=== PATIENT | female | born 1950 | race Caucasian/White ===

== ENCOUNTER → 2017-04-21 08:31 | Outpatient (CLI) | payer BC, SELFPAY ==
--- NOTE | 2017-04-21 08:37 | MM_ITS ---
MM Dig screening mamm BI w/CAD CAD Screening COMPARISON: None, this is baseline INDICATION: There is a history of breast cancer in patient's maternal grandmother diagnosed in her 50s TECHNIQUE: Standard CC and MLO images were obtained. R2 CAD reviewed. FINDINGS: The breasts are composed primarily of fat with minimal scattered fibroglandular densities throughout each breast. There are 2 oval calcifications right breast just deep to the nipple typical of oil cysts. There are couple benign-appearing calcifications left breast. There is no suspicious lesion and there are no suspicious microcalcifications. IMPRESSION: Fibrofatty parenchyma no suspicious lesion seen BI-RADS Category: 2 Benign Finding(s) RECOMMENDED FOLLOW-UP: 1YR - 1 YEAR FOLLOW-UP (A letter has been sent to the patient regarding results of the study.)
== END ==
PROVIDERS: Family Provider Family Medicine; PCP Family Medicine; Visit Provider Family Medicine
DX: Z12.31 Encounter for screening mammogram for malignant neoplasm of breast (principal)
CPT/HCPCS: 77067

== ENCOUNTER 2020-10-13 08:30 | Emergency (ER) | payer BC, SELFPAY ==
[2020-10-13 08:33] VITALS: BP 168/76; PULSE 68; RESP 16; TEMP 36.7; O2SAT 98; BMI 33.2
--- NOTE | 2020-10-13 08:46 | XR_ITS ---
PROCEDURE: XR FOOT LT MIN 3V CLINICAL INDICATION: trauma Posttraumatic pain COMPARISON: No exams were available for comparison FINDINGS: No fracture or dislocation. No lytic or blastic change. There is normal mineralization. Osteoarthritic changes are present at the 1st MTP joint. Calcaneal spur and Achilles enthesophyte noted. Calcification along the plantar surface of the mid aspect of the calcaneus also present. Other findings:None. IMPRESSION: No acute findings. Dictated by: Carlos Martin MD 10/13/2020 09:32 Carlos Martin MD in [place] 10/13/2020 09:32
--- NOTE | 2020-10-13 09:26 | HMH.EDGENADL ---
ED Disposition Clinical Impression: Avulsed toenail Qualifiers: Encounter type: initial encounter Qualified Code(s): S91.209A - Unspecified open wound of unspecified toe(s) with damage to nail, initial encounter Disposition: Home, Self-Care Condition on Discharge: Good Instructions: DI for Laceration Repair -- Simple Referrals: Moe Evangelista MD [Primary Care Provider] - - Critical Care Critical Care Time: No Attestation: On 10/13/20, the high probability of a clinically significant, sudden or life threatening deterioration of the following system(s) required my full and direct attention, intervention and personal management. The time I documented below is in addition to time spent performing reported procedures but includes the following listed in this critical care notation. Medical Decision Making - Medical Records Medical records reviewed: Yes: I reviewed the patient's medical records. - Case Inquiry Pt receiving controlled substance: No Vital Signs: 10/13/20 08:33 Temperature 98.1 F Temperature Source Oral Pulse Rate [Radial] 68 Respiratory Rate 16 Blood Pressure [Right Arm] 168/76 H Blood Pressure Mean [Right Arm] 106 Blood Pressure Position [Right Arm] Sitting 02 Sat by Pulse Oximetry 98 Oxygen Delivery Method Room Air Orders (Tests/Meds): ED MEDICATIONS Discontinued Medications Generic Name Dose Route Start Last Admin Trade Name Freq PRN Reason Stop Dose Admin Ibuprofen 800 mg 10/13/20 08:45 10/13/20 08:51 Ibuprofen 400 Mg Tablet PO 10/13/20 08:46 Not Given ONCE ONE - Radiology Data #1 Image(s): Foot/Toes Image Reviewed: Yes I reviewed the patient's radiology results, Yes I reviewed the patient's radiology image, Yes I have reviewed radiologist's interpretation Preliminary Findings: Normal/NAD, No Fracture Seen - Reevaluation(s) Time: 10:07 Reevaluation #1: On reevaluation, the patient tolerated procedure well. Given that half of the nailbed was still intact, we did attempt to reposition the lateral aspect of the nail and placed [address] sterile dressing. Patient will follow up with PCP in 48 hours. Given strict return precautions. Verbalized understanding. Medical Decision Narrative: 62-year-old female presenting with some pain in the left great toe. Concern for fracture. Patient does have removed nailbed on the medial aspect. Work-up initiated. General Adult HPI - General Chief complaint: PAIN Stated complaint: ao [id number]@injury to left foot, horse stepped on it Time Seen by Provider: 10/13/20 08:40 Mode of Arrival: Ambulatory Limitations: No Limitations Description of Symptoms (Recalled from ER Triage Doc. by RN): TO ED PER PVT CAR WITH C/O LT FOOT INJURY STATES HORSE STEPPED ON FOOT TUESDAY. - History of Present Illness HPI narrative: 70-year-old female presented to the emergency department with an injury to her left great toe. Patient states that a horse stepped on her foot. Complaining of some mild pain in the distal aspect of the left great toe. She had some bleeding at the time it occurred. Her nail has been removed slightly from the medial aspect. She did not sustain any other injuries. Tetanus is up-to-date. Denies any chest pain or shortness of breath. No abdominal pain or vomiting. No headache or change in vision. - Related Data Allergies Allergy/AdvReac Type Severity Reaction Status Date / Time BEE VENOM Allergy Unknown SWELLING Uncoded 02/15/17 15:38 PENICILLIN Allergy Unknown I-HIVES Uncoded 02/15/17 15:38 [facility] History - Hepatitis A Screen Drug use history?: No High risk sexual behaviors?: No History of sexually transmitted infection?: No Currently employed?: No Childcare worker?: No Do you have indoor plumbing?: Yes Do you have electricity?: Yes Attestation statement:: This patient has been screened for Hepatitis A risk factors. I have reviewed the patient's past medical history: Yes
--- NOTE | 2020-10-13 10:20 | PC.NURSE ---
DSD APPLIED TO LT GREAT TOE
[2020-10-13 10:21] VITALS: BP 115/74; PULSE 65; RESP 16; TEMP 36.6; O2SAT 98
== END 2020-10-13 10:23 | disposition home or self-care (01) ==
PROVIDERS: Emergency Provider Emergency Medicine; PCP Family Medicine
DX: S91.212A Laceration without foreign body of left great toe with damage to nail, initial encounter (principal); W55.19XA Other contact with horse, initial encounter; Y92.79 Other farm location as the place of occurrence of the external cause; Z88.0 Allergy status to penicillin
CPT/HCPCS: 12001; 73630; 99282

== ENCOUNTER → 2021-02-10 11:16 | Outpatient (CLI) | payer BC, SELFPAY ==
[2021-02-11 08:16] LABS: Homocyst(e)ine 18.8 umol/L (0.0-17.2)
[2021-02-11 10:44] LABS: Rapid Plasma Reagin Ab Titer Non Reactive (NonRea<1:1)
[2021-02-13 17:09] LABS: Vitamin B1 104.2 nmol/L (66.5-200.0)
[2021-02-14 21:08] LABS: Methylmalonic Acid 256 nmol/L (0-378)
[2021-04-17 10:11] LABS: Antinuclear Antibodies (ANA) NEGATIVE
== END ==
LOC: LAB 03-14 02:02
PROVIDERS: Visit Provider Nurse Practitioner Family
DX: R41.3 Other amnesia (principal)
CPT/HCPCS: 36415; 82131; 83090; 84425; 86038; 86225; 86235; 86592

== ENCOUNTER → 2021-02-13 16:20 | Outpatient (CLI) | payer BC, MEDICARE, SELFPAY ==
--- NOTE | 2021-02-13 16:20 | MR_ITS ---
PROCEDURE INFORMATION: Exam: MR Head Without Contrast Exam date and time: 02/13/2021 4:20 PM Age: 70 years old Clinical indication: Pain; Headache; Additional info: Eval for [employer] abnormalaties, lesion, mass, etc TECHNIQUE: Imaging protocol: MR of the head without contrast. COMPARISON: No relevant prior studies available. FINDINGS: Brain: Moderate central and peripheral cerebral atrophy identified. No evidence of intracranial mass. There is no evidence of focal cerebral edema. Punctate and globular areas of increased T2 signal are identified within lateral periventricular white matter, compatible with chronic deep white matter ischemic changes. No evidence of proton diffusion restriction within the brain on the diffusion-weighted images. No evidence of cerebellar tonsillar ptosis. Cerebral ventricles: Mild global ventriculomegaly. No evidence of midline shift. Bones/joints: Unremarkable. Paranasal sinuses: Normal as visualized. No acute sinusitis. Mastoid air cells: Normal as visualized. No mastoid effusion. Orbital cavity: Unremarkable. Soft tissues: The pituitary gland is normal size and position. IMPRESSION: 1. Moderate central and peripheral cerebral atrophy with mild global ventriculomegaly and chronic deep white matter ischemic changes. 2. No evidence of acute edema. There is no evidence of intracranial mass.
== END ==
PROVIDERS: PCP Family Medicine; Visit Provider Nurse Practitioner Family
DX: R41.3 Other amnesia (principal)
CPT/HCPCS: 70551

== ENCOUNTER → 2021-02-17 09:28 | Outpatient (CLI) | payer BC, MEDICARE, SELFPAY | PROVIDERS: PCP Family Medicine; Visit Provider Nurse Practitioner Family | DX: R41.3 Other amnesia (principal) | CPT/HCPCS: 95816 ==

== ENCOUNTER 2021-03-06 09:00 | Outpatient (RCR) | payer BC, MEDICARE, SELFPAY ==
--- NOTE | 2021-01-28 09:30 | HMH.PTOPEV ---
PT Outpatient Evaluation Rehab PT Outpatient Evaluation Start: 01/28/21 09:16 Freq: Status: Active Protocol: Document 01/28/21 09:16 TRAVIS (Rec: 01/28/21 09:28 TRAVIS [id number]) Electronically Signed By Pavan Andino, PT 01/28/21 09:16 Outpatient Therapy Subjective History Subjective History Patient is a 70 year old female presenting to outpatient PT with reports of R knee pain/stiffness S/P R TKA performed 12/22/20 (5w 2d) . Patient reports R knee symptoms of insidious onset starting approximately 2 years ago that has progressively gotten worse. Patient received home health PT for 4 visits after surgery. Main complaint at this time is lack of R knee flexion. Comorbidities include hx of B LANNY and DJD. Chief Complaint Pain,Stiff,Swelling,Weakness Symptom Type Throb,Dull Symptoms Relieved By Rest/Positioning,Ice,OTC Meds Symptoms Aggravated By Standing,Physical Activity, Walking Prior Functional Limitations None Current Functional Limitations Housework,Driving,Standing, Recreation Activity,Walking, Stairs,Balance Symptom Description Constant but Variable Level of pain today (0-10) 2 Pain scale - at its best (0-10) 2 Pain scale - at its worst (0-10) 7 Hip/Knee Eval Gait Observation General Gait Pattern Observation Antalgic Gait,Decrease Weight Bear (R) Assistive Device Assistive Devices None / NA Palpation Tenderness right Knee Palpation Finding Tenderness Knee Palpation Overall Comment Surgical incision, M/L joint line 2/4 MMT Hip Flexion Strength Grade 3+ Fair+ Hip Abduction Strength Grade 3+ Fair+ Hip Adduction Strength Grade 4- Good- Hip Extension Strength Grade 4- Good- Hip External Rotation Strength Grade 4 Good Hip Internal Rotation Strength Grade 4 Good Knee Extension Strength Grade 4 Good Knee Flexion Strength Grade 4 Good ROM Hip ROM Reason Not Measured Within Functional Limits Knee Extension Active Range of Motion ( -8 degrees) Knee Extension Passive Range of Motion ( -4 degrees) Knee Flexion Active Range of Motion ( 79 degrees) Knee Flexion Passive Range of Motion (
--- NOTE | 2021-02-25 10:48 | HMH.RHREAS ---
Rehab Reassessment Rehab OP Re-assessment Start: 02/25/21 10:39 Freq: Status: Active Protocol: Document 02/25/21 10:39 TRAVIS (Rec: 02/25/21 10:48 TRAVIS [id number]) Electronically Signed By Pavan Andino, PT 02/25/21 10:39 Rehab Re-assessment Subjective Subjective Patient reports 85% improvment since start of care. Objective Objective Notes AROM: flx 86; ext -9 PROM: flx 100; ext -2 MMT: hip flx 4-/5; hip abd 4-/ 5; add 4/5; ext 4-/5; ER/IR 4/ 5; knee ext 5-/5; knee flx 5/5 Pain: currently 0/10; 5/10 at worst over past week TTP: none Special tests: - Assessment Progress Assessment Progressing as Expected Assessment Notes Patient is tolerating progression of Rx well. Objective improvements as noted above. Main concern at this point is lack of improvement in mobility and hip strength. Hip strengthening hindered by previous LANNY bilaterally. Patient has not returned to full duty with work related activiities secondary to safety and fear avoidance. Patient would benefit from continuing skilled PT services in order to address her mobility issues, as well as functional limitations with all standing/ambulatory activities. Patient goals met STG's, LTG 1,4,5 Goals Not Met LTG 2,3,6,7 Revised Goals NA Plan Plan Continue with current POC. Frequency of Therapy 2x/week Duration of therapy 4 weeks Time and Billing Re-Eval Time 15 Re-Eval Billing Units 1 PHYSICIAN CERTIFICATION: I certify the specified therapy services for Xiao Hu are required, authorized, and reviewed every 30 days.
== END 2021-03-06 09:05 | disposition home or self-care (01) ==
LOC: PT 09:00
PROVIDERS: PCP Family Medicine; Visit Provider Family Medicine
DX: M25.561 Pain in right knee (principal); Z96.651 Presence of right artificial knee joint
CPT/HCPCS: 97110; 97140; 97163; 97164

== ENCOUNTER → 2021-05-20 12:21 | Outpatient (CLI) | payer BC, MEDICARE, SELFPAY | PROVIDERS: PCP Family Medicine; Visit Provider Nurse Practitioner Family | DX: G47.33 Obstructive sleep apnea (adult) (pediatric) (principal); G47.8 Other sleep disorders; I10 Essential (primary) hypertension; R41.3 Other amnesia; E66.9 Obesity, unspecified; Z68.36 Body mass index [BMI] 36.0-36.9, adult | CPT/HCPCS: G0399 ==

== ENCOUNTER → 2021-09-10 09:08 | Outpatient (CLI) | payer BC, SELFPAY ==
--- NOTE | 2021-09-10 09:12 | XR_ITS ---
FINAL REPORT TECHNIQUE: Bone densitometry calculations of the lumbar spine and left forearm were obtained. CLINICAL HISTORY: . post menopausal screening, patient has had bilateral hip replacements FINDINGS: DEXA BONE DENSITY AXIAL SKELETON Using L1-4, the bone mineral density of the spine is 1.259 g/cm2, corresponding to T-score of 1.9. Using the left forearm, the bone mineral density of the distal 1/3 is 0.670 g/cm2, corresponding to a T-score of -0.4. NOTE: T-score: Standard deviation compared with peak bone mass of young adult mean. IMPRESSION: Normal bone mineral density of the lumbar spine and left forearm. Reviewed, Interpreted and Dictated by Chuy Bui MD Transcribed by Rosy Boyce Authenticated and . [facility]
--- NOTE | 2021-09-10 09:12 | MM_ITS ---
PROCEDURE INFORMATION: Exam: MG Bilateral Screening 3D Mammography Exam date and time: 09/10/2021 9:25 AM Age: 71 years old Clinical indication: Screening examination TECHNIQUE: Imaging protocol: Bilateral Screening tomosynthesis and 2D mammography including computer-aided detection (CAD) when performed. COMPARISON: MG SCBI MM Dig screening mamm BI w/CAD 04/21/2017 8:59 AM FINDINGS: MAMMOGRAPHY: Breast composition: The breasts are almost entirely fatty. Mass: None. Architectural distortion: None. Calcifications: No suspicious calcifications. Asymmetric density: None. Skin thickening: None. Axillary adenopathy: None. IMPRESSION: No mammographic evidence of malignancy. Annual screening is recommended unless otherwise clinically indicated. ASSESSMENT: BI-RADS Category 1: Negative
== END ==
PROVIDERS: PCP Family Medicine; Visit Provider Family Medicine
DX: Z12.31 Encounter for screening mammogram for malignant neoplasm of breast (principal); Z13.820 Encounter for screening for osteoporosis; Z78.0 Asymptomatic menopausal state
CPT/HCPCS: 77063; 77067; 77080

== ENCOUNTER → 2022-04-27 11:22 | Outpatient (CLI) | payer BC, MEDICARE, SELFPAY ==
--- NOTE | 2022-04-27 11:33 | XR_ITS ---
FINAL REPORT CLINICAL HISTORY: KNEE PAIN LEFT, fell 3 weeks ago , pain, swelling FINDINGS: AP, lateral and oblique views of the left knee were obtained. There is no prior exam for comparison. There is no acute osseous abnormality of the knee. There is degenerative disease which is most pronounced at the patellofemoral compartment. There is a small joint effusion. Otherwise, the soft tissues are within normal limits. IMPRESSION: Joint effusion without acute osseous abnormality. Consider MR for further evaluation if pain persists. Reviewed, Interpreted and Dictated by Janett Gaffney MD Transcribed by Rosy Boyce Authenticated and [facility]
== END ==
PROVIDERS: PCP Family Medicine; Visit Provider Family Medicine
DX: M25.562 Pain in left knee (principal)
CPT/HCPCS: 73562

== ENCOUNTER → 2022-05-13 19:56 | Outpatient (CLI) | payer BC, MEDICARE, SELFPAY | PROVIDERS: PCP Family Medicine; Visit Provider Nurse Practitioner Family | DX: G47.33 Obstructive sleep apnea (adult) (pediatric) (principal); G47.36 Sleep related hypoventilation in conditions classified elsewhere | CPT/HCPCS: 95811 ==

== ENCOUNTER → 2022-06-15 10:30 | Outpatient (CLI) | payer BC, MEDICARE, SELFPAY ==
--- NOTE | 2022-06-15 10:36 | XR_ITS ---
FINAL REPORT CLINICAL HISTORY: hypoxemia FINDINGS: Two views of the chest were obtained. The heart size and pulmonary vascularity are within normal limits. The mediastinum is normal. There is eventration of the right hemidiaphragm. There is no pneumothorax. The bony thorax is intact. IMPRESSION: Eventration of the right hemidiaphragm. Reviewed, Interpreted and Dictated by Bassam Parekh III, MD Transcribed by Rosy Boyce Authenticated and [facility]
== END ==
PROVIDERS: PCP Family Medicine; Visit Provider Nurse Practitioner Family
DX: G47.34 Idiopathic sleep related nonobstructive alveolar hypoventilation (principal)
CPT/HCPCS: 71046

== ENCOUNTER → 2022-06-22 09:53 | Outpatient (CLI) | payer BC, SELFPAY ==
[2022-06-22 11:00] VITALS: PULSE 78; PULSE 81
== END ==
PROVIDERS: PCP Family Medicine; Visit Provider Nurse Practitioner Family
DX: G47.34 Idiopathic sleep related nonobstructive alveolar hypoventilation (principal)
CPT/HCPCS: 94060; 94618; 94640; 94727; 94729

== ENCOUNTER → 2022-09-13 12:44 | Outpatient (CLI) | payer BC, SELFPAY ==
--- NOTE | 2022-09-13 13:32 | CT_ITS ---
FINAL REPORT TECHNIQUE: Thin section axial images were obtained from the lung apices through the upper abdomen without contrast. This study was performed with techniques to keep radiation doses as low as reasonably achievable (ALARA). Individualized dose reduction techniques using automated exposure control or adjustment of mA and/or kV according to the patient's size were employed. CLINICAL HISTORY: abnormal CXR COMPARISON: None FINDINGS: There is no mediastinal, hilar, or axillary lymphadenopathy. No pleural or pericardial effusion. There is a 6 mm left lower lobe nodule seen best in axial image #64. No other pulmonary masses or nodules are visualized. There is elevation of the right hemidiaphragm. Gallstones are present in the gallbladder. No other abnormality identified in the noncontrast upper abdomen limited exam. There is no acute osseous abnormality. IMPRESSION: 6 mm left lower lobe nodule seen best on axial image #64. Would recommend follow-up exam after risk stratification per Fleischner criteria. Gallstones are present in the gallbladder. Elevation of the right hemidiaphragm. Reviewed, Interpreted and Dictated by Janett Gaffney MD Transcribed by Rosa Proctor Authenticated and [facility]
== END ==
PROVIDERS: PCP Family Medicine; Visit Provider Internal Medicine Pulmonary Disease
DX: R06.02 Shortness of breath (principal); Q79.1 Other congenital malformations of diaphragm
CPT/HCPCS: 71250; 94060; 94726; 94729

== ENCOUNTER → 2022-10-18 08:23 | Outpatient (CLI) | payer BC, SELFPAY ==
--- NOTE | 2022-10-18 08:23 | FL_ITS ---
FINAL REPORT CLINICAL HISTORY: hypoventilation fluoro time.35 FINDINGS: SNIFF TEST HISTORY: Shortness of breath. FINDINGS: A sniff test was performed under fluoroscopy. There was paradoxical movement of the right hemidiaphragm on both breathing and sniff maneuvers. FLUOROSCOPY TIME: 32 seconds. 5 cine runs were obtained. IMPRESSION: Paradoxical movement of the right hemidiaphragm. Films reviewed , interpreted and dictated by Dr. Bui. Transcribed by Carter Norton PA-C. Reviewed, Interpreted and Dictated by Chuy Bui MD Transcribed by DYLON Obrien Authenticated and . [facility]
== END ==
PROVIDERS: PCP Family Medicine; Visit Provider Internal Medicine Pulmonary Disease
DX: J98.6 Disorders of diaphragm (principal)
CPT/HCPCS: 76000; 94762

== ENCOUNTER → 2023-01-25 08:07 | Outpatient (CLI) | payer BC, SELFPAY ==
--- NOTE | 2023-01-25 08:10 | MM_ITS ---
PROCEDURE INFORMATION: Exam: MG Bilateral Screening 3D Mammography Exam date and time: 01/25/2023 8:03 AM Age: 72 years old Clinical indication: Screening mammogram TECHNIQUE: Imaging protocol: Bilateral Screening tomosynthesis and 2D mammography including computer-aided detection (CAD) when performed. COMPARISON: 1. MG MM DIG SCREENING MAMM BI W/CAD 09/10/2021 9:25 AM 2. MG SCBI MM Dig screening mamm BI w/CAD 04/21/2017 8:59 AM FINDINGS: MAMMOGRAPHY: Breast composition: There are scattered areas of fibroglandular density. Mass: None. Architectural distortion: No new or suspicious architectural distortion. Calcifications: No new or suspicious calcifications are present Asymmetric density: No new or suspicious asymmetric density is present Skin thickening: None. Axillary adenopathy: None. IMPRESSION: No mammographic evidence of malignancy. Recommend annual screening mammography unless otherwise clinically indicated. ASSESSMENT: BI-RADS category 1: Negative
== END ==
PROVIDERS: PCP Family Medicine; Visit Provider Family Medicine
DX: Z12.31 Encounter for screening mammogram for malignant neoplasm of breast (principal)
CPT/HCPCS: 77063; 77067

== ENCOUNTER 2023-08-03 11:14 | Outpatient (CLI) | payer BC, SELFPAY ==
--- NOTE | 2023-08-03 | XR_ITS ---
FINAL REPORT CLINICAL HISTORY: LBP COMPARISON: None FINDINGS: LUMBOSACRAL SPINE SERIES Five views of the lumbosacral spine were obtained. There is no fracture present. There are moderate and severe degenerative changes. Vacuum phenomenon is noted at L2-3 and L3-4. There is mild anterolisthesis of L4 on L5. Mild rightward curvature of the lumbosacral spine is noted. There are postoperative changes in the bilateral hips. IMPRESSION: Moderate and severe degenerative changes. Reviewed, Interpreted and Dictated by Bassam Parekh III, MD Transcribed by Nisha Little Authenticated and [facility]
== END 2023-08-03 23:59 | disposition home or self-care (01) ==
LOC: RAD 11:15
PROVIDERS: PCP Family Medicine; Visit Provider Family Medicine
DX: M54.50 Low back pain, unspecified (principal); M51.36 Other intervertebral disc degeneration, lumbar region
CPT/HCPCS: 72110

== ENCOUNTER 2023-08-14 19:33 | Emergency (ER) | payer BC, MEDICARE, SELFPAY ==
[2023-08-14] VITALS (7 sets, daily range): BP systolic 104–128; BP diastolic 46–69; PULSE 69–77; RESP 12–17; TEMP 36.5–36.7; O2SAT 91–97; BMI 41.5
--- NOTE | 2023-08-14 19:38 | CT_ITS ---
PROCEDURE INFORMATION: Exam: CT Cervical Spine Without Contrast Exam date and time: 08/14/2023 7:43 PM Age: 73 years old Clinical indication: Injury or trauma; Fall; Blunt trauma; Additional info: Fall, injury TECHNIQUE: Imaging protocol: Computed tomography of the cervical spine without contrast. Radiation optimization: All CT scans at this facility use at least one of these dose optimization techniques: automated exposure control; mA and/or kV adjustment per patient size (includes targeted exams where dose is matched to clinical indication); or iterative reconstruction. COMPARISON: CT HEAD/BRAIN WO CON 08/14/2023 7:43 PM FINDINGS: Bones: No evidence of acute osseous abnormality. The vertebral bodies are maintained in height and alignment. Moderate loss of intervertebral disc space with degenerative changes at C4 through C7 with uncovertebral joint and facet osteophytosis resulting in moderate bilateral neural foraminal stenosis at these levels. Dystrophic calcifications in the posterior soft tissues likely related to prior injury. Lungs: Lung apices are normal. Soft tissues: Unremarkable. IMPRESSION: 1. No evidence of acute osseous abnormality. 2. Moderate loss of intervertebral disc space with degenerative changes at C4 through C7 with uncovertebral joint and facet osteophytosis resulting in moderate bilateral neural foraminal stenosis at these levels.
--- NOTE | 2023-08-14 19:38 | CT_ITS ---
PROCEDURE INFORMATION: Exam: CT Head Without Contrast Exam date and time: 08/14/2023 7:43 PM Age: 73 years old Clinical indication: Injury or trauma; Fall; Blunt trauma (contusions or hematomas); Additional info: Fall, injury TECHNIQUE: Imaging protocol: Computed tomography of the head without contrast. Radiation optimization: All CT scans at this facility use at least one of these dose optimization techniques: automated exposure control; mA and/or kV adjustment per patient size (includes targeted exams where dose is matched to clinical indication); or iterative reconstruction. COMPARISON: MR HEAD/BRAIN WO CON 02/13/2021 5:28 PM FINDINGS: Brain: There is moderate diffuse cerebral volume loss present. Multiple subcortical and deep hypoattenuating white matter foci are present, likely related to small vessel senescent changes and can also be seen with prior infectious / inflammatory insult, or prior traumatic events. No hyperattenuating foci are identified to suggest acute intracranial hemorrhage. Cerebral ventricles: No ventriculomegaly. Paranasal sinuses: Visualized sinuses are unremarkable. No fluid levels. Mastoid air cells: Visualized mastoid air cells are well aerated. Bones: Unremarkable. No acute fracture. Soft tissues: Unremarkable. IMPRESSION: 1. Multiple subcortical and deep hypoattenuating white matter foci are present, likely related to small vessel senescent changes and can also be seen with prior infectious / inflammatory insult, or prior traumatic events. 2. No hyperattenuating foci are identified to suggest acute intracranial hemorrhage.
--- NOTE | 2023-08-14 19:39 | ECG_ITS ---
APPROVED REPORT Exam: Resting ECG HR:67 bpm ECG Measurements Heart Rate 67 AXES TX 193 P 62 QRSd 110 QRS -44 QT 449 T 64 QTc 464 Conclusion SINUS RHYTHM LEFT AXIS DEVIATION [QRS AXIS < -30] PATTERN CONSISTENT WITH PULMONARY DISEASE MODERATE VOLTAGE CRITERIA FOR LVH, CONSIDER NORMAL VARIANT [MEETS CRITERIA IN ONE OF: R(aVL), S(V1), R(V5), R(V5/V6)+S(V1)] ABNORMAL ECG UNCONFIRMED REPORT Electronically signed by : Demarcus Holder, 08/14/2023 22:57:56
--- NOTE | 2023-08-14 19:40 | ED_ITS ---
Discharge Plan Disposition Chief Complaint: Fall Prescriptions Prescriptions: No Action omega-3 fatty acids 1,000 mg capsule 1,000 mg PO DAILY thiamine HCl (vitamin B1) 100 mg tablet 100 mg PO DAILY Qty: 30 11RF losartan 50 mg tablet 100 mg PO DAILY mecobalamin (vitamin B12) 5,000 mcg tablet,disintegrating See Rx Instructions PO .COMPLEX Rx Instructions: PO daily; atorvastatin 20 mg tablet 20 mg PO DAILY Patient Comments: TAKE 1 TABLET BY MOUTH ONCE DAILY oxybutynin chloride 10 mg tablet extended release 24hr 10 mg PO DAILY Patient Comments: TAKE 1 TABLET BY MOUTH ONCE DAILY memantine 5 mg tablet 5 mg PO BID 90 Days Qty: 180 0RF duloxetine [Cymbalta] 60 mg capsule,delayed release(DR/EC) 60 mg PO DAILY diphenhydramine HCl [Allergy (diphenhydramine)] 25 mg capsule 25 mg PO HS PRN (Reason: allergies) magnesium 200 mg tablet 200 mg PO DAILY Clinical Impressions Clinical Impression: Concussion, Nausea & vomiting Discharge ED Provider: Zahra Holder General Adult HPI General Chief complaint: Fall Stated complaint: fall Time Seen by Provider: 08/14/23 19:33 History of Present Illness HPI narrative: Patient is a 73-year-old female brought in today after a fall and head injury and nausea vomiting. She is amnestic to the event does not recall what happened did have some preceding dizziness and lightheadedness the last several days according to her . She currently denies any symptoms she denies any headache any nausea or vomiting states she feels completely normal. She is not on any anticoagulants or antiplatelet agents. Related Data Home Medications Medication Instructions Recorded Confirmed omega-3 fatty acids 1,000 mg 1,000 mg PO DAILY 02/09/21 08/14/23 capsule duloxetine 60 mg capsule,delayed 60 mg PO DAILY 03/23/21 08/14/23 release (Cymbalta) mecobalamin (vitamin B12) 5,000 See Rx Instructions PO .COMPLEX 06/09/21 08/14/23 mcg disintegrating tablet atorvastatin 20 mg tablet 20 mg PO DAILY 03/11/22 08/14/23 diphenhydramine HCl 25 mg capsule 25 mg PO HS PRN allergies 07/23/22 08/14/23 (Allergy (diphenhydramine)) losartan 50 mg tablet 100 mg PO DAILY 11/09/22 08/14/23 magnesium 200 mg tablet 200 mg PO DAILY 11/09/22 08/14/23 oxybutynin chloride 10 mg 10 mg PO DAILY 05/17/23 08/14/23 tablet,extended release 24 hr Previous Rx's Medication Instructions Recorded thiamine HCl (vitamin B1) 100 mg 100 mg PO DAILY #30 tabs 02/09/21 tablet memantine 5 mg tablet 5 mg PO BID memory loss 90 days 05/17/23 #180 tabs Allergies Allergy/AdvReac Type Severity Reaction Status Date / Time bee venom Allergy Intermediate Uncoded 01/11/23 10:40 PENICILLIN Allergy Unknown I-HIVES Uncoded 01/11/23 10:40 PFSH [facility] Disclaimer: The information contained in this section may have been updated after the patient was seen, as this information can be updated by other users. Medical History Diaphragm dysfunction Elevated diaphragm Respiratory symptoms Diaphragm, eventration Essentially asymptomatic. declined volume assisted ventilation Nocturnal hypoxemia resolved with CPAP without any intolerance. MCI (mild cognitive impairment) MCI with memory loss, stable, some initial improvement with treatment of some risk factors which include but are not limited to MARYLOU, hypoxemia, B12 deficiency, depression, hypertension, daily consumption of alcohol, chronic pain. Denies any interest in considering memantine, donepezil. Memory loss MARYLOU (obstructive sleep apnea) Surgical History History of hip replacement, total History of hip replacement, total History of knee replacement procedure of right knee Family History Other Coronary artery disease Diabetes Heart attack Hypertension Social History Smoking Status: Never smoker alcohol intake: current alcohol intake frequency: 0-2 drinks per day substance use type: denies use current occupational status: employed Travel in the last 8 weeks: None household members: spouse housing: house marital status: ROS Obtained: Yes All systems reviewed & no additional complaints except as documented Physical Exam General General appearance: alert and in no apparent distress Head Head exam: atraumatic and normocephalic Neck Neck exam: Absent tenderness Respiratory Respiratory exam: Present normal lung sounds bilaterally Cardiovascular Cardiovascular exam: Present regular rate and normal rhythm Abdominal Exam Abdominal exam: Present soft; Absent distention or tenderness Neurological Exam Neurological exam: Present alert, oriented X3 and CN II-XII intact; Absent motor sensory deficit Medical Decision Making Case Inquiry Pt receiving controlled substance: No Vital Signs: 08/14/23 19:33 08/14/23 20:00 08/14/23 20:30 Temperature 97.7 F Temperature Source Oral Pulse Rate 71 70 Pulse Rate [Left Radial] 73 Respiratory Rate 15 13 14 Blood Pressure 104/56 L 128/63 Blood Pressure [Right Arm] 104/56 L Blood Pressure Mean [Right Arm] 72 Blood Pressure Source [Right Arm] Automatic Cuff Blood Pressure Position [Right Arm] Sitting 02 Sat by Pulse Oximetry 91 L 97 96 Oxygen Delivery Method Room Air Room Air Room Air 08/14/23 20:45 08/14/23 21:00 08/14/23 21:30 Temperature Temperature Source Pulse Rate 69 74 71 Pulse Rate [Left Radial] Respiratory Rate 12 17 16 Blood Pressure 121/57 L 114/69 127/66 Blood Pressure [Right Arm] Blood Pressure Mean [Right Arm] Blood Pressure Source [Right Arm] Blood Pressure Position [Right Arm] 02 Sat by Pulse Oximetry 97 93 L 96 Oxygen Delivery Method Room Air Room Air Room Air Lab Data Lab results reviewed: Yes I reviewed the patient's lab results. Lab Results 08/14/23 19:20: WBC 6.0, RBC 4.06 L, Hgb 13.2, Hct 39.8, MCV 98.0, MCH 32.5 H, MCHC 33.1, RDW 14.3, Plt Count 308, MPV 9.1, Neut % (Auto) 43.8, Lymph % (Auto) 40.0, Harney % (Auto) 7.2, Eos % (Auto) 7.9, Baso % (Auto) 1.1, Neut # (Auto) 2.6, Lymph # (Auto) 2.4, Harney # (Auto) 0.4, Eos # (Auto) 0.5 H, Baso # (Auto) 0.1, Sodium 140, Potassium 3.8, Chloride 104, Carbon Dioxide 25, Anion Gap 14.8, BUN 18 H, Creatinine 0.90, Estimated Creat Clear 39, Estimated GFR 62, Est GFR ( Amer) 75, Glucose 94, Calcium 9.3, Magnesium 2.4 H, Total Bilirubin 0.5, AST 47 H, ALT 30, Alkaline Phosphatase 61, Troponin I < 0.01, Total Protein 7.3, Albumin 4.1, Globulin 3.2, Albumin/Globulin Ratio 1.3 08/14/23 19:20 08/14/23 19:20 Orders (Tests/Meds): ED MEDICATIONS Discontinued Medications Generic Name Dose Route Start Last Admin Trade Name Benedicto PRN Reason Stop Dose Admin Ondansetron HCl 4 mg 08/14/23 19:38 08/14/23 19:45 Ondansetron 4mg/2ml Vial IV 08/14/23 19:39 4 mg ONCE ONE Administration ORDERS Category Date Time Status CT cervical spine wo con Stat Cat Scan 08/14/23 19:[address] head/brain wo con Stat Cat Scan 08/14/23 19:38 Completed CBC w/Auto Diff [Complete Blood Count Auto Diff] Stat Lab 08/14/23 19:20 Completed CMP [Comprehensive Metabolic Panel] Stat Lab 08/14/23 19:20 Completed Magnesium Stat Lab 08/14/23 19:20 Completed Trop I [Troponin I] Stat Lab 08/14/23 19:20 Completed Troponin I Q3H Lab 08/14/23 22:45 Ordered Troponin I Q3H Lab 08/15/23 01:45 Ordered Medical Decision Narrative: 73-year-old presents after a fall and a head injury according to her brought in by EMS GCS of 15 normal neurologic exam but she is amnestic to the event had some nausea vomiting likely is concussed. Will get a CT scan of her head and cervical spine to further evaluate for intracranial injury. Given the fact that she was also having some lightheadedness and dizziness will obtain basic labs and electrolytes troponin and EKG. If this workup is negative she will be cleared to go home with close reevaluation. CT scan of the head and cervical spine are personally interpreted and shows no acute traumatic abnormalities. According radiology there are multiple subcortical white matter foci which likely due to small vessel disease but could be seen from prior traumatic events no acute traumatic abnormalities. On reassessment patient is at her neurologic baseline according to her is now at the bedside. She has had some low oxygen saturations particular while sleeping but wears CPAP at home states she always has low oxygen saturations when awake and interactive with me her ox saturations been admitted to the low 90s. She has CPAP which she wears at home. They assure me this is her normal baseline. She is not symptomatic from a cardiorespiratory standpoint. EKG was performed to person interpreted which shows ventricular rate 67 sinus rhythm there is left axis deviation no acute ischemic changes noted no significant conduction abnormalities. No further indication for emergent or inpatient hospitalization. She will follow-up with primary care doctor as needed. Critical Care Critical Care Time Critical Care Time: No
[2023-08-14 19:45] LABS: Basophils # 0.1 K/mm3 (0-0.2); Basophils % 1.1 % (0.1-2.0); Eosinophils # 0.5 K/mm3 (0.0-0.4); Eosinophils % 7.9 % (0.1-12.0); Hematocrit 39.8 % (37.0-47.0); Hemoglobin 13.2 g/dL (12.2-16.2); Lymphocytes # 2.4 K/mm3 (0.7-4.5); Mean Corpuscular HGB Conc 33.1 g/dL (31.8-35.4); Mean Corpuscular Hemoglobin 32.5 pg (27.0-31.2); Mean Platelet Volume 9.1 fl (7.4-10.4); Monocytes # 0.4 K/mm3 (0.1-1.0); Monocytes % 7.2 % (1.7-9.3); Neutrophils # 2.6 K/mm3 (1.8-7.8); Neutrophils % 43.8 % (37.0-80.0); Platelet Count 308 K/mm3 (142-424); Red Blood Count 4.06 M/mm3 (4.20-5.40); Red Cell Distribution Width 14.3 % (11.5-17.5)
[2023-08-14] MEDS: ONDANSETRON 4MG/2ML VIAL 4 MG IV (19:45)
[2023-08-14 19:46] LABS: Chloride 104 mmol/L (98-107); Potassium 3.8 mmoL/L (3.5-5.1); Sodium 140 mmol/L (136-145)
[2023-08-14 19:48] LABS: Blood Urea Nitrogen 18 mg/dl (7-17); Creatinine Clearance Estimated 39 mL/min (50-200); Estimated Glomerular Filt Rate 62 ml/min (>60); GFR (African American) 75 ML/MIN (>60)
[2023-08-14 19:49] LABS: Alanine Aminotransferase 30 U/L (12-78); Albumin Level 4.1 g/dl (3.5-5.0); Albumin/Globulin Ratio 1.3 (1.1-1.8); Alkaline Phosphatase 61 U/L (38-126); Anion Gap 14.8 mEq/L (5-15); Aspartate Amino Transferase 47 U/L (14-36); Bilirubin,Total 0.5 mg/dl (0.2-1.3); Calcium 9.3 mg/dl (8.4-10.2); Carbon Dioxide 25 mmol/L (22.0-30.0); Globulin 3.2 g/dL (1.3-3.2); Glucose 94 mg/dl (74-100); Magnesium 2.4 mg/dl (1.6-2.3); Total Protein,Serum 7.3 g/dl (6.3-8.2)
[2023-08-14 20:02] LABS: Troponin I < 0.01 ng/ml (0.00-0.034)
--- NOTE | 2023-08-14 21:40 | PC.NURSE ---
Noted patient oxygen desaturating to low 80s on monitor. This RN to bedside to assess patient. Patient reports that she had just fallen asleep. Patient also reports she always wears CPAP at home to sleep. Oxygen saturation quickly returned to patient's baseline of 96% on room air.
--- NOTE | 2023-08-14 21:52 | PC.NURSE ---
patient assisted to bathroom patient now back in bed
== END 2023-08-14 22:28 | disposition home or self-care (01) ==
PROVIDERS: Emergency Provider Student in an Organized Health Care Education/Training Program; PCP Family Medicine
DX: S06.0X0A Concussion without loss of consciousness, initial encounter (principal); R11.2 Nausea with vomiting, unspecified; R42 Dizziness and giddiness; G47.33 Obstructive sleep apnea (adult) (pediatric); I10 Essential (primary) hypertension; W19.XXXA Unspecified fall, initial encounter
CPT/HCPCS: 70450; 72125; 80053; 83735; 84484; 85025; 93005; 96374; 99285; J2405

== ENCOUNTER 2023-09-06 11:10 | Outpatient (CLI) | payer BC, MEDICARE, SELFPAY | END 2023-09-06 23:59 | disposition home or self-care (01) | LOC: RT 11:11 | PROVIDERS: PCP Family Medicine; Visit Provider Internal Medicine Pulmonary Disease | DX: J98.6 Disorders of diaphragm (principal); R06.02 Shortness of breath | CPT/HCPCS: 94762 ==

== ENCOUNTER 2023-09-14 09:00 | Outpatient (RCR) | payer BC, MEDICARE, SELFPAY ==
--- NOTE | 2023-08-11 09:49 | HMH.PTOPEV ---
PT Outpatient Evaluation Rehab PT Outpatient Evaluation Start: 08/11/23 08:07 Freq: Status: Active Protocol: Document 08/11/23 08:07 ARIADNE (Rec: 08/11/23 09:01 ARIADNE [id number]) E-signed By Yudi Sosa, PT Outpatient Therapy Subjective History Subjective History This is an initial evaluation for 73 y/o female, Xiao Sanchez, who presents with c/o LBP. Pt reports these symptoms began the last 1.5 years and has progressively gotten worse. Pt reports standing and walking aggrevate her pain the most and finds relief with bending forwards. 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 Denies numbness, tingling, shooting pain, or worsening weakness. Denies prior PT for LBP. PMH: Hypertension, high cholesterol, MARYLOU PSH: B LANNY, R TKA Lumbar x-ray 08/03/23 Impression : Moderate and severe degenerative changes. New diagnosis of cancer in past 12 No months? Chief Complaint Pain Symptom Type Ache,Dull Symptoms Relieved By Rest/Positioning,OTC Meds, Prescription Meds,Activity Symptoms Aggravated By Standing,Walking Current Functional Limitations Lifting,Standing,Recreation Activity,Walking Symptom Description Constant but Variable Level of pain today (0-10) 4 Pain scale - at its best (0-10) 3 Pain scale - at its worst (0-10) 8 Lumbopelvic Eval Posture Thoracic Spine Posture Standing Position Neutral Lumbar Spine Posture Standing Position Neutral Assistive device Assistive Devices None / NA Gait Observation General Gait Pattern Observation Antalgic Gait Palapation tenderness bilateral lumbar spinal tenderness Yes: 1/4 TTP paraspinal tenderness Yes: 1/4 TTP buttock tenderness No Range of Motion Lumbar Spine Active Flexion Range of 90, painfree Motion (degrees) Lumbar Spine Active Extension Range of 15, painful Motion (degrees) Left Lumbar Spine Lateral Flexion Active 35, painful Range of Motion (degrees) Right Lumbar Spine Lateral Flexion 32, painful Active Range of Motion (degrees) Lumbar Spine ROM Limitations Pain Manual Muscle Test Bilateral Knee Extension Strength Grade 4 Good Knee Flexion Strength Grade 4 Good Hip Abduction Strength Grade 3 Fair Hip Adduction Strength Grade 4- Good- Hip Extension Strength Grade 4- Good- Special Tests Sciatic Nerve Tension Test Negative Left,Negative Right Crossed Straight Leg Raise Test Negative Left,Negative Right Sacroiliac Joint Compression Test Negative Left,Negative Right Sacroiliac Joint Distraction Test Negative Left,Negative Right Oswestry Index Section 1 Pain Intensity The pain is moderate and does not vary much Section 2 Personal Care (Washing,Dresing) my way of washing or dressing even though it causes some pain Section 3 Lifting I can lift heavy weights, but it gives me extra pain Section 4 Walking I cannot walk more than 1/2 mile without increasing pain Section 5 Sitting I can sit in my favorite chair for as long as I like Section 6 Standing I cannot stand more than 1/2 hour without increasing pain Section 7 Sleeping I get no pain in bed Section 8 Social Life My social life is normal but increases the degree of pain Section 9 Traveling I get some pain when traveling , but none of my usual forms of travel m Section 10 Changing Degreee of Pain My pain is gradually getting worse Score and Risk Level Oswestry Sc 18 Oswestry Risk Level Moderate Disability Outpatient Therapy Assessment Impairments Problems/Impairmments Palpation Tenderness,Impaired Range of Motion,Impaired Strength,Impaired Endurance, Impaired Gait Pattern,Impaired Walking,Impaired Standing, Impaired Recreational Activities,Impaired Work Activities,Subjective C/O Pain Prognosis Rehab Potential Good Clinical Impression Consistent with Diagnosis Yes Short Term Goals Number of Weeks 3 Increase Strength Yes: 4/5 hip flexion to improve daily function Improve Oswestry Score Yes: Improve by 4 points to decrease self-perceived disability Decrease Subjective C/O Pain Yes: 24 hour pain average of 5 /10 to decrease disability Patient to be Ind w/ HEP Yes Correction Goals Increase Range of Motion Yes: WNL pain free lumbar AROM all directions Increase Strength Yes: 5/5 BLE MMT to maximize functional strength Improve Oswestry Score Yes: Improve by 6 point to reflect mild disability Decrease Subjective C/O Pain Yes: 24 hour pain average of 3 /10 to decrease symptom severity to minimal Patient to be Ind w/ Advanced HEP Yes Outpatient Therapy Plan of Care Treatment Plan May Include Therapeutic Exercise Including Home Yes Exercise Program Manual Therapy Techniques Yes Neuromuscular Re-education Yes Therapeutic Activities to Return to Yes Previous Functional/Work Level Gait Training Yes ADL/Self Care Education Yes Mechanical Traction Yes Dry Needling Yes Thermal Modalities Yes Electrical Stimulation Yes Ultrasound/Phonophoresis Yes Iontophoresis Yes Orthotics/Bracing/Splinting Yes Massage Yes Eval/Re-Eval Yes Aquatic Therapy Yes Frequency Times per week 2x Duration Number of Weeks 5-6 weeks Addendums This patient is a candidate for social No or vocational rehab? Patient/Guardian verbally acknowledges Yes understanding of treatment program and consents to further treatment? Patient/Guardian verbally acknowledges Yes understanding of diagnosis, prognosis and goals for treatment? Eval Complexity PT Charges 50225 - Moderate Complexity Shoulder/Elbow Eval Shoulder Objective Measurements Elbow Objective Measurements PHYSICIAN CERTIFICATION: I certify the specified therapy services for Xiao Hu are required, authorized, and reviewed every 30 days.
--- NOTE | 2023-09-12 10:21 | [facility].RHREAS ---
Rehab Reassessment Rehab OP Re-assessment Start: 08/11/23 08:07 Freq: Status: Active Protocol: Document 09/12/23 09:24 ARIADNE (Rec: 09/12/23 10:19 ARIADNE [id number]) E-signed By Yudi Sosa, PT Oswestry Index Section 1 Pain Intensity The pain comes and goes and is very mild Section 2 Personal Care (Washing,Dresing) change my way of washing or dressing in order to avoid pain Section 3 Lifting I can lift heavy weights, but it gives me extra pain Section 4 Walking I cannot walk more than 1/2 mile without increasing pain Section 5 Sitting I can sit in my favorite chair for as long as I like Section 6 Standing I cannot stand more than 1/2 hour without increasing pain Section 7 Sleeping I get pain in bed, but it does not prevent me from sleeping well Section 8 Social Life Pain has no significant effect on my social life apart from limiting Section 9 Traveling I get some pain when traveling , but none of my usual forms of travel m Section 10 Changing Degreee of Pain My pain is neither getting better or worse Score and Risk Level Oswestry Sc 15 Oswestry Risk Level Moderate Disability Rehab Re-assessment Subjective Subjective Pt reports she feels half way better since initial physical therapy evaluation. At worst pain: 6/10 24 hour pain: 4-5/10 Objective Objective Notes Lumbar AROM: FLEX= 92, relieving EXT= 20, painful R SB= WNL, painfree L SB= WNL, painfree BLE MMTs: Hip FLEX = 4/5 Hip ABD = 4/5 Hip ADD = 4/5 Knee FLEX = 4/5 Knee EXT = 4/5 Assessment Progress Assessment Progressing as Expected Assessment Notes This is a reassessment for Xiao Hu who presents to PT for c/o LBP. Since IE, pt has been seen for 4 treatment visits that have consisted of modalities prn, education, and therapeutic exercises focusing on core/LE strength and ROM. Pt with good attendance to scheduled PT visits and reports adherence to some HEP tasks. Since IE, pt with improvements in ROM and subjective pain complaints . Pt still presents with impaired BLE strength and LBP reports when standing/walking. Pt would continue to benefit from skilled outpatient physical therapy to address remaining deficits and achieve LTGs. Patient goals met ST/4 LUCY not met (by 1 point) LTG: In progress Plan Plan Coninue POC Frequency of Therapy 2x Duration of therapy 3 weeks Time and Billing Re-Eval Time 10 Re-Eval Billing Units 1 PHYSICIAN CERTIFICATION: I certify the specified therapy services for Xiao Hu are required, authorized, and reviewed every 30 days.
== END 2023-09-14 10:00 | disposition home or self-care (01) ==
LOC: PT 09:00
PROVIDERS: Visit Provider Family Medicine
DX: M54.50 Low back pain, unspecified (principal)
CPT/HCPCS: 97110; 97163; 97164; 97530

== ENCOUNTER 2023-09-19 14:19 | Outpatient (CLI) | payer BC, MEDICARE, SELFPAY ==
--- NOTE | 2023-09-19 14:27 | CT_ITS ---
FINAL REPORT TECHNIQUE: Axial images were obtained from the lung apex to the mid abdomen by computed tomography. Coronal reformatted images were obtained. This study was performed with techniques to keep radiation doses as low as reasonably achievable, (ALARA). Individualized dose reduction techniques using automated exposure control or adjustment of mA and/or kV according to the patient''s size were employed. CLINICAL HISTORY: Lung nodule 12-month follow-up COMPARISON: 09/13/2022 FINDINGS: Left lower lobe nodule is again noted on image 62 measuring 5 mm. Right lower lobe scarring is seen. There is no new pulmonary density identified. No pleural or pericardial effusion is seen. No adenopathy or mass lesion is present. Limited images of the upper abdomen demonstrate cholelithiasis. IMPRESSION: 5 mm left lower lobe nodule not significantly changed. Recommend continue 12-month follow-up. Reviewed, Interpreted and Dictated by Prema Coronado MD Transcribed by Nisha Little Authenticated and [facility]
== END 2023-09-19 23:59 | disposition home or self-care (01) ==
LOC: RAD 14:22
PROVIDERS: PCP Family Medicine; Visit Provider Internal Medicine Pulmonary Disease
DX: R91.8 Other nonspecific abnormal finding of lung field (principal); R94.2 Abnormal results of pulmonary function studies
CPT/HCPCS: 71250; 94010

== ENCOUNTER 2024-02-08 08:32 | Outpatient (CLI) | payer BC, SELFPAY ==
--- NOTE | 2024-02-08 08:36 | CA_ITS ---
APPROVED REPORT EXAM: Comprehensive 2D, Doppler, and color-flow Echocardiogram Masonry Instructor: Jaqui Ridley RT(R) Ht: 5 ft 1 in Wt: 225lbs BSA: 1.99 BP: 196/66 mmHg Indications: murmur, SOB, MARYLOU 2D Dimensions Left Atrium 3.91 cm F: 2.7 - 3.8 LA Volume 41.10 mL LVOT 1.99 cm (M/F) 1.5-2.5 LA Volume Index 20.65 mL/m2 (M/F) 16-34 EF AP4 41.60 % GL Strain -14.8 % M-Mode Dimensions RVDd 3.77 cm (0.9-2.6) LVDd 2.89 cm (3.5-5.7) Ao Diam 1.90 cm (2.0-3.7) LVDs 2.17 cm (3.5-5.7) IVSd 1.12 cm (0.6-1.1) PWd 0.80 cm (0.6-1.1) EF (Teich) 50.80% FS 24.90% EDV (Teich) 31.90 mL ESV (Teich) 15.70 mL LV Diastology E Decel Time 219 (160-240 msec) E/A Ratio 0.7 MED E' 8.7 (>= 7 cm/sec) E'/MED E' Ratio 10.37 (<= 14) LAT E' 8.2 (>= 10 cm/sec) E/LAT E' Ratio 11.00 (<= 14) Aortic Valve LVOT Max 144.0 (70-110 cm/s) GABY Index 0.82 cm2/m2 LVOT VTI 33.59 cm AoV Peak Rubens. 318.0 (50-130 cm/s) AO Mean GR. 20.00 (<5 mmHg) AO VTI 63.6 (18-25 cm) GABY (VTI) 1.64 (2.5-4.5 cm2) Mitral Valve MV E Max Rubens. 90.0 (40-130 cm/s) MV A Velocity 124.0 (40-130 cm/s) E/A Ratio 0.73 MV Decel. Time 219 (160-240 ms) Left Ventricle The left ventricle is normal size. The left ventricular systolic function is normal. The left ventricular ejection fraction is within the normal range. There is increased LV wall thickness. Regional wall motion cannot be estimated due to technically difficult imaging. Transmitral Doppler flow pattern suggests impaired LV relaxation. LVEF is 55-60%. Right Ventricle The right ventricle is not very well-visualized, but grossly appears normal in size and function. Atria The left atrium size is normal. The right atrium size is normal. The interatrial septum is not well-visualized. Aortic Valve The aortic valve leaflets are thickened. Moderate aortic stenosis. GABY by continuity equation is 1.5 cm2. Peak velocity 3.2 m/s. Mean AV gradient 18 mmHg. Max AV gradient 37 mmHg. Mild aortic regurgitation. Mitral Valve The mitral valve leaflets are mildly thickened. Trace mitral regurgitation. Tricuspid Valve The tricuspid valve leaflets are thin and pliable. Trace tricuspid regurgitation. There is insufficient TR jet to estimate RVSP. Pulmonic Valve The pulmonic valve leaflets are not well-visualized. Great Vessels The aortic root is not well-visualized. The IVC is not well-visualized. Pericardium There is no pericardial effusion. Other Information Study Quality: Technically Difficult Conclusion Technically difficult study due to poor acoustic windows. Grossly, normal biventricular systolic function. Moderate (GABY by continuity equation is 1.5 cm2. Peak velocity 3.2 m/s. Mean AV gradient 18 mmHg. Max AV gradient 37 mmHg). Mild AI. Electronically signed by : Lizzy Nguyen MD 02/12/2024 21:24:59
== END 2024-02-08 23:59 | disposition home or self-care (01) ==
LOC: RT 08:33
PROVIDERS: PCP Family Medicine; Visit Provider Family Medicine
DX: I35.1 Nonrheumatic aortic (valve) insufficiency (principal); R01.1 Cardiac murmur, unspecified
CPT/HCPCS: 93306

== ENCOUNTER 2024-06-13 10:00 | Outpatient (RCR) | payer BC, MEDICARE, SELFPAY ==
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
== END 2024-06-13 23:59 | disposition home or self-care (01) ==
LOC: PT 10:00
PROVIDERS: Visit Provider Family Medicine
DX: M51.360 Other intervertebral disc degeneration, lumbar region with discogenic back pain only (principal)
CPT/HCPCS: 97014; 97035; 97110; 97163; G0283

== ENCOUNTER 2024-07-25 13:00 | Outpatient (RCR) | payer BC, SELFPAY ==
--- NOTE | 2024-07-11 09:51 | HMH.RHREAS ---
Rehab Reassessment Rehab OP Re-assessment Start: 07/02/24 09:01 Freq: Status: Active Protocol: Document 07/11/24 09:09 [email or web address] (Rec: 07/11/24 09:50 GAURANGHALLIE [id number]) E-signed By Era Aguilar, PT Oswestry Index Section 1 Pain Intensity The pain is moderate and does not vary much Section 2 Personal Care (Washing,Dresing) change my way of washing or dressing in order to avoid pain Section 3 Lifting lifting heavy weights off the floor, but I can manage if they are Section 4 Walking I have some pain when walking but it does not increase with distance Section 5 Sitting I can sit in my favorite chair for as long as I like Section 6 Standing I cannot stand more than 1/2 hour without increasing pain Section 7 Sleeping I get no pain in bed Section 8 Social Life Pain has no significant effect on my social life apart from limiting Section 9 Traveling I get some pain when traveling , but none of my usual forms of travel m Section 10 Changing Degreee of Pain My pain is neither getting better or worse Score and Risk Level Oswestry Sc 17 Oswestry Risk Level Moderate Disability Rehab Re-assessment Subjective Subjective Pt reports she feels 5% improved since starting PT. Pt reports she continues to have severe low back pain with prolonged walking >10' requiring her to sit and stretch forward to relieve pain. 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 Pt reports she has been trying to take it easy and on those days rates pain 4/10 at worst. Pt reports compliance with HEP. Objective Objective Notes Palpation: 2/4 TTP of L1-L5, R lumbar PS Lumbar AROM: 85 flex, 20 ext, 12 LF L hip AROM: flex 100, ER 45, IR 25 R hip AROM: flex 90, ER 45, IR 25 Assessment Assessment Notes Pt has attended 5 PT treatment sessions consisting of lumbar flexion based program, LE stretching, core/LE strengthening, manual therapy and modalities with good tolerance. Pt demonstrated improved LUCY score however continues to report severe central low back pain with prolonged walking. Overall, the pt would continue to benefit from skilled PT to further improve subjective report of pain, LE/core strength and functional activity tolerance to improve overall QOL. Patient goals met ST/3 Goals Not Met p! at worst, LTG Revised Goals n/a Plan Plan Continue POC. Consider aquatic therapy if needed. Frequency of Therapy 2x/week Duration of therapy 4 more weeks Time and Billing Re-Eval Time 11 Re-Eval Billing Units 0 Charge for PT reassessment? No Charge for OT reassessment? No PHYSICIAN CERTIFICATION: I certify the specified therapy services for Xiao Hu are required, authorized, and reviewed every 30 days.
== END 2024-07-25 23:59 | disposition home or self-care (01) ==
LOC: PT 13:00
PROVIDERS: Visit Provider Family Medicine
DX: M51.360 Other intervertebral disc degeneration, lumbar region with discogenic back pain only (principal)
CPT/HCPCS: 97012; 97014; 97035; 97110; 97140; G0283

== ENCOUNTER 2024-08-01 09:00 | Outpatient (RCR) | payer BC, SELFPAY | END 2024-08-01 23:59 | disposition home or self-care (01) | LOC: PT 09:00 | PROVIDERS: Visit Provider Family Medicine | DX: M51.360 Other intervertebral disc degeneration, lumbar region with discogenic back pain only (principal) | CPT/HCPCS: 97014; 97110; G0283 ==

== ENCOUNTER 2024-08-15 12:32 | Outpatient (CLI) | payer BC, SELFPAY ==
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
== END 2024-08-15 23:59 | disposition home or self-care (01) ==
LOC: RAD 12:33
PROVIDERS: PCP Family Medicine; Visit Provider Family Medicine
DX: M48.061 Spinal stenosis, lumbar region without neurogenic claudication (principal); M99.73 Connective tissue and disc stenosis of intervertebral foramina of lumbar region; M51.360 Other intervertebral disc degeneration, lumbar region with discogenic back pain only
CPT/HCPCS: 72148

== ENCOUNTER 2024-10-08 08:51 | Outpatient (POV) | payer BC, SELFPAY ==
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
--- OUTSIDE RECORDS SUMMARY | 2024-10-08 08:54 | XMS_ITS ---
Author Organization Unknown Results OrderDate OrderTestName ResultName ResultDate Value Units Range AbnormalFlag ResultStatus ObservationNotes TestCode ResultCode DateRecorded AccessionNumber DiagnosticSectionCode DiagnosticSectionName Sequence Interpretation Cust om 11/29/2023 00:00:00 P-Microalbumin/Creatinine, Random Urine Sample Microalbumin, Urine, Random 5832-56-21N99:00:00 0.3 mg/dL - mg/dL Sabra Oquendo 11/30/2023 10:42:33 AM > See phone encounter P-Microalbumin/Creatinine, R andom Urine Sample Coding Microalbumin, Urine, Random 11/29/2023 00:00:001 00:00:00P-Microalbumin/Creatinine, Random Urine SampleCreatinine, Sezhl3510-59-08H77:00:0052.8mg/dL- mg/dLReSabra So 11/30/2023 10:42:33 AM > See phone encounter Coding P-Microalbumin/Creatinine, R andom Urine Sample Coding Creatinine, Urine 11/29/2023 00:00:001 00:00:00P-Microalbumin/Creatinine, Random Urine SampleAlbumin/Creatinine Ratio, Zvwvh0205-95-25K26:00:006ug/mg0-30 - ug/mg Sabra Maloney 11/30/2023 10:42:33 AM > See phone encounter Coding P-Microalbumin/Creatinine, R andom Urine Sample Coding Albumin/Creatinine Ratio, Ur ine 11/29/2023 00:00:001 00:00:00P-TSH reflex to FT4TSH reflex to FT4 5504-03-14E42:00:001.11mU/L0.43-5.25 - mU/LRevieSabra Wilson 11/30/2023 10:42:33 AM > See phone encounter Coding P-TSH reflex to FT4 Coding TSH reflex to FT4 11/29/2023 00:00:001 00:00:00P-Lipid PanelTriglycerides 3302-27-98J67:00:0086mg/dL<150 - mg/dLReSabra So 11/30/2023 10:42:33 AM > See phone encounter Coding P-Lipid Panel Coding Triglycerides 11/29/2023 00:00:001 00:00:00P-Lipid PanelNon-HDL Cholesterol 6624-38-00I33:00:91125yl/dL<130 - mg/dLReSabra So 11/30/2023 10:42:33 AM > See phone encounter Coding P-Lipid Panel Coding Non-HDL Cholesterol 11/29/2023 00:00:001 00:00:00P-Lipid PanelLDL/HDL Ratio 4688-43-50W47:00:001.3Ratio<3.3 - RatioReSabra So 11/30/2023 10:42:33 AM > See phone encounter Coding P-Lipid Panel Coding LDL/HDL Ratio 11/29/2023 00:00:001 00:00:00P-Lipid PanelLDL Cholesterol (Calculation) 4078-47-48W01:00:0087mg/dL<130 - mg/dLReSabra So 11/30/2023 10:42:33 AM > See phone encounter Coding P-Lipid Panel Coding LDL Cholesterol (Calculation ) 11/29/2023 00:00:001 00:00:00P-Lipid PanelHDL Cholesterol 5916-48-53I16:00:0065mg/dL>39 - mg/dLSabra Maloney 11/30/2023 10:42:33 AM > See phone encounter Coding P-Lipid Panel Coding HDL Cholesterol 11/29/2023 00:00:001 00:00:00P-Lipid PanelCholesterol 0913-39-36D42:00:62599iu/dL<200 - mg/dLReSabra So 11/30/2023 10:42:33 AM > See phone encounter Coding P-Lipid Panel Coding Cholesterol 11/29/2023 00:00:001 00:00:00P-Lipid PanelCholesterol / HDL Ratio 8615-09-53K49:00:002.43Aqsvh2.00-4.44 - RatioReSabra So 11/30/2023 10:42:33 AM > See phone encounter Coding P-Lipid Panel Coding Cholesterol / HDL Ratio 11/29/2023 00:00:001 00:00:00P-Comprehensive Metabolic Panel (CMP)eGFR by Fobankhudi1032-44-71B56:00:0062mL/min/1.73m2>59 - mL/min/1.71y7UztzakacSabra Negrete 11/30/2023 10:42:33 AM > See phone encounter Coding P-Comprehensive Metabolic Pa steve (CMP) 11/29/2023 00:00:001 00:00:00P-Comprehensive Metabolic Panel (CMP) Dxgqrov6737-48-92H53:00:006.1g/dL6.0-8.3 - g/dLReSabra So 11/30/2023 10:42:33 AM > See phone encounter Coding P-Comprehensive Metabolic Pa steve (CMP) Coding Protein 11/29/2023 00:00: 00:00:00P-Comprehensive Metabolic Panel (CMP) Ynwizk2977-36-61K51:00:88745bdqk/M244-131 - mmol/LRevSabra Salgado 11/30/2023 10:42:33 AM > See phone encounter Coding P-Comprehensive Metabolic Pa steve (CMP) Coding Sodium 11/29/2023 00:00:001 00:00:00P-Comprehensive Metabolic Panel (CMP) Tbgkvvvpt5582-92-99G41:00:004.5mmol/L3.5-5.3 - mmol/LRevieSabra Wilson 11/30/2023 10:42:33 AM > See phone encounter Coding P-Comprehensive Metabolic Pa steve (CMP) Coding Potassium 11/29/2023 00:00:001 00:00:00P-Comprehensive Metabolic Panel (CMP) Lijiqaz6935-03-62E07:00:0088mg/dL65-99 - mg/dLSabra Maloney 11/30/2023 10:42:33 AM > See phone encounter Coding P-Comprehensive Metabolic Pa steve (CMP) Coding Glucose 11/29/2023 00:00:001 00:00:00P-Comprehensive Metabolic Panel (CMP) Tisgplccpe3934-52-05R85:00:000.97mg/dL0.50-1.00 - mg/dLSabra Maloney 11/30/2023 10:42:33 AM > See phone encounter Coding P-Comprehensive Metabolic Pa steve (CMP) Coding Creatinine 11/29/2023 00:00: 00:00:00P-Comprehensive Metabolic Panel (CMP)CO2 5203-79-61J69:00:0028mmol/L22-32 - mmol/LRevSabra Salgado 11/30/2023 10:42:33 AM > See phone encounter Coding P-Comprehensive Metabolic Pa steve (CMP) Coding CO2 11/29/2023 00:00: 00:00:00P-Comprehensive Metabolic Panel (CMP) Wqejutgf0264-77-22D76:00:00904hfet/L97-108 - mmol/LRevSabra Salgado 11/30/2023 10:42:33 AM > See phone encounter Coding P-Comprehensive Metabolic Pa steve (CMP) Coding Chloride 11/29/2023 00:00: 00:00:00P-Comprehensive Metabolic Panel (CMP) Akemgsm9054-21-37G02:00:009.6mg/dL8.6-10.4 - mg/dLSabra Maloney 11/30/2023 10:42:33 AM > See phone encounter Coding P-Comprehensive Metabolic Pa steve (CMP) Coding Calcium 11/29/2023 00:00:001 00:00:00P-Comprehensive Metabolic Panel (CMP)BUN 3587-20-87R72:00:0026mg/dL8-23 - mg/dLSabra Ag 11/30/2023 10:42:33 AM > See phone encounter Coding P-Comprehensive Metabolic Pa steve (CMP) Coding BUN 11/29/2023 00:00:001 00:00:00P-Comprehensive Metabolic Panel (CMP) Bilirubin, Qtmvg6349-46-30K29:00:000.3mg/dL<0.2-1.2 - mg/dLSabra Maloney 11/30/2023 10:42:33 AM > See phone encounter Coding P-Comprehensive Metabolic Pa steve (CMP) Coding Bilirubin, Total 11/29/2023 00:00:001 00:00:00P-Comprehensive Metabolic Panel (CMP)AST (SGOT)2410-83-28B91:00:0023IU/L<5-40 - IU/LRevieSabra Wilson 11/30/2023 10:42:33 AM > See phone encounter Coding P-Comprehensive Metabolic Pa steve (CMP) Coding AST (SGOT) 11/29/2023 00:00:001 00:00:00P-Comprehensive Metabolic Panel (CMP)ALT (SGPT)9026-21-10V75:00:0017IU/L<5-47 - IU/LRevieSabra Wilson 11/30/2023 10:42:33 AM > See phone encounter Coding P-Comprehensive Metabolic Pa steve (CMP) Coding ALT (SGPT) 11/29/2023 00:00:001 00:00:00P-Comprehensive Metabolic Panel (CMP) Alkaline Jhjfwdokksj7691-71-14Q81:00:63079IE/L35-121 - IU/LRevieSabra Wilson 11/30/2023 10:42:33 AM > See phone encounter Coding P-Comprehensive Metabolic Pa steve (CMP) Coding Alkaline Phosphatase 11/29/2023 00:00: 00:00:00P-Comprehensive Metabolic Panel (CMP) Nffacve6462-58-34X94:00:003.8g/dL3.5-5.3 - g/dLRevieweSabra Atkins 11/30/2023 10:42:33 AM > See phone encounter Coding P-Comprehensive Metabolic Pa steve (CMP) Coding Albumin 11/29/2023 00:00: 00:00:00P-Comprehensive Metabolic Panel (CMP)A/G Wdogp2950-50-33K36:00:001.71.1-2.5 -ReviewedSabra Gregory 11/30/2023 10:42:33 AM > See phone encounter Coding P-Comprehensive Metabolic Pa steve (CMP) Coding A/G Ratio 11/29/2023 00:00: 00:00:00Glycohemoglobin A1c (in house) fkxqfjiovejdqwa0365-45-41S48:00:005.2%%5 - 6.5 %Sabra Maloney 11/30/2023 2:45:31 PM > , See phone encounter Coding Glycohemoglobin A1c (in hous e) Coding glycohemoglobin 11/29/2023 00:00: 00:00:00Glucose (In-House)blood glucose 2414-18-16N08:00:85544hm/dL74 - 106 mg/dLReLorene Yeager 11/29/2023 10:59:37 AM > Sabra Gregory 11/30/2023 10:42:33 AM > See phone encounter Coding Glucose (In-House) 11/29/2023 00:00:00
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
--- OUTSIDE RECORDS SUMMARY | 2024-10-08 08:56 | XMS_ITS | Clinical Summary ---
Author Organization [facility] Address [address] [place] [address] Care Team Providers Care V Belt Curer Name Role Phone Moe Evangelista MD Primary Care Provider [phone] Allergies No known active allergies Medications losartan (COZAAR) 100 MG tablet Take 100 mg by mouth Daily. PATIENT UNSURE OF DOSE Active diphenhydrAMINE (BENADRYL) 25 mg capsule Take 25 mg by mouth Daily. Active multivitamin (MULTI VITAMIN DAILY PO) Take 1 tablet by mouth Daily. Active Ropivacine HCl-NaCl (NAROPIN)Indica tions:Acute Pain 20 mg/hr by Peripheral Nerve route Continuous. Indications: Acute Pain 1 Active oxyCODONE (Roxicodone) 5 MG immediate release tabletIndicatio ns:S/P total knee arthroplasty, right Take 1 tablet by mouth Every 4 (Four) Hours As Needed for Moderate Pain . 30 tablet 1 Active Active Problems Problem Noted Date Diagnosed Date Postoperative pain 12/23/2020 Arthritis of right knee 12/22/2020 HTN (hypertension) 12/22/2020 Obesity 12/22/2020 S/P total knee arthroplasty, right 12/22/2020 Social History Tobacco Use Types Packs/Day Years Used Date Smoking Tobacco: Never Smokeless Tobacco: Never Alcohol Use Standard Drinks/Week Comments Yes 0 (1 standard drink = 0.6 oz pur e alcohol) SOCIALLY Abuse Screen Answer Date Recorded Unsafe at Home or Work/School Not on file Feels Threatened by Someone? Not on file Does Anyone Keep You from Co ntacting Others or Doint Things Outside the Home? Not on file 12/10/2022 Physical Sign of Abuse Present Not on file 1 Housing Stability Answer Date Recorded Current Living Arrangements Not on file 11/28 Potentially Unsafe Housing Conditions Not on kendell e 12/10/2022 Family and Community Support Answer Tavares e Recorded Help with Day-to-Day Activities Not on file 12/10/2022 Lonely or Isolated Not on file 12/10/2022 Employment Answer Date Recorded Do you want help finding or keeping work or a rima b? Not on file 12/10/2022 Disabilities Answer Date Recorded Concentrating, Remembering, or Making Decisions Difficulty Not on file 12/10/2022 Doing Errands Independently Difficulty Not on fi le 12/10/2022 Education Answer Date Recorded Help with school or training? Not on file Preferred Language Not on file 12/10/2022 Comments No Sex and Gender Information Value Date Recorded Sex Assigned at Not on file Legal Sex Female 8:55 AM EDT Gender Identity Not on file Sexual Orientation Not on file Last Filed Vital Signs Vital Sign Reading Time Taken Comments Blood Pressure 122/73 01/16/2021 2:30 PM EST Pulse 72 01/16/2021 2:30 PM EST Temperature 36.6 C (97.8 F) 01/16/2021 2:30 PM EST Respiratory Rate 18 01/16/2021 2:30 PM EST Oxygen Saturation 98% 01/16/2021 2:30 PM EST Inhaled Oxygen Concentration - - Weight 86.2 kg (190 lb) 12/22/2020 9:35 AM EDT Height 154.9 cm (5' 1 ) 12/22/2020 9:35 AM EDT Body Mass Index 35.9 12/22/2020 9:35 AM EDT Plan of Treatment Health Maintenance Due Date Last Done Comments DXA SCAN 1952 TDAP/TD VACCINES (1 - Tdap) 1971 MAMMOGRAM 1992 COLOGUARD 1997 COLON CANCER SCREENING 5 YEAR SIGMOIDOSCOPY 1997 COLONOSCOPY 1997 [address]AL CANCER SCREENING 1997 CT COLONOGRAPHY 1997 FECAL OCCULT BLOOD TEST 1997 FIT Testing (1 year) 1997 Pneumococcal Vaccine 50+ (1 of 1 - PCV) 2002 ZOSTER VACCINE (1 of 2) 2002 ANNUAL PHYSICAL 12/16/2020 HEPATITIS C SCREENING 12/16/2020 COVID-19 Vaccine ( season) 10/30/202308/2020 INFLUENZA VACCINE 11/28/2024 Medical Devices Implanted Type Area Silk Washing Machine Operator Device Identifier Shelf Expiration Date Model / Serial / Lot Cmt Bone Palacos R Hi/Visc 1x40 - [id number] Implanted:Qty : 2 on 12/22/2020 by Jorje Hurley MD at [facility] Implant Right: Knee [employer] 04/27/2022 [id number] / / [id number] Dev Contrl Tiss Stratafix Symm Pds Plus Oniel Ct-1 45cm - [id number] Implanted:Qty : 1 on 12/22/2020 by Jorje Hurley MD at [facility] Implant Right: Knee [employer] J AND J [id number] / / Insrt Art Legion Cr Hf Xlpe Sz3to4 9mm - [id number] Implanted:Qty : 1 on 12/22/2020 by Jorje Hurley MD at [facility] Implant Right: Knee [employer] [id number] 09/27/2030 [id number] / / [id number] Comp Fem Legion Oxinium Cr Nrw Sz5n Rt - [id number] Implanted:Qty : 1 on 12/22/2020 by Jorje Hurley MD at [facility] Implant Right: Knee [employer] [id number] 02/05/2030 [id number] / / [id number] Pat Gen2 Resrf 32mm - [id number] Implanted:Qty : 1 on 12/22/2020 by Jorje Hurley MD at [facility] Implant Right: Knee [employer] 10/12/2030 [id number] / / [id number] Base Tib/Kn Gen2 Nonpor Ti Sz4 Rt - [id number] Implanted:Qty : 1 on 12/22/2020 by Jorje Hurley MD at [facility] Implant Right: Knee [employer] 09/21/2030 [id number] / / [id number] Totl Kn Archie Pabon Nephjustin - [id number] Implanted:Qty : 1 on 12/22/2020 by Jorje Hurley MD at [facility] Implant Right: Knee [employer] ROSETTE [id number] / / Bilateral Hips Insurance MEDICARE A ONLY Member Subscriber Plan / Payer (Ef fective 2017-Present) Name:Mayte Xiao G Member ID:[id number] Relation to Subscriber:Self Name:Xiao Hernandez Subscriber ID:[id number] Payer ID:[id number] Group ID:Not on file Type:Not on file Address: [facility] [id number] [address] Care Teams V Belt Curer Relationship Specialty Start Date End Date Moe Evangelista MD [address] [place] [address] [place] [id number] PCP - General Family Medicine 12/17/20
[2024-10-08 09:21] VITALS: BP 143/47; PULSE 86; RESP 18; O2SAT 95; BMI 45.3
--- NOTE | 2024-10-08 09:41 | EXP.PAIN.OV ---
HPI Data of Consult Patient: new to practice Consult date: 10/08/24 Requesting Physician: Era Colbert APRN Primary Care Provider: Moe Evangelista MD Reason for consult: Low back pain, radicular History of present illness: Ms. Hu is a 74 year old female who presents today as a new patient. She is a referral from Dr. Evangelista's office. Today she rates her pain a 6 out of 10. Patient states all of her pain is at her mid back and is worse when she is up walking and moving. Patient does state that she does not have any issues with this bending or twisting and that that actually makes her pain feel better. Patient does feel like that she has to typically stop and take a break. She describes it as a dull ache that progressively worsens the longer she is up on her feet. 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 Patient has tried conservative treatment including oral medications, heat and ice, topicals and just recently as of last month finished physical therapy with no additional changes. Patient does try and stay active and do physician guided exercises on a daily basis. Patient does state that they have even bought a back brace and that seems to add support. Patient has used Celebrex currently. Patient denies any blood thinners. Patient denies any prior back surgery or injection history. She does state that she has had 2 artificial hips and the knee replaced. Her Case has been reviewed and is appropriate. Pain at rest (0-10 scale): 6 Has patient had previous pain injection?: No Conservative treatment options previously tried: NSAIDS (Longer than 12 weeks), Home exercise plan (Longer than 12 weeks) and Physical Therapy (Just completed last month with no additional improvement) cc:: CC: Era Colbert APRN [facility] Disclaimer: The information contained in this section may have been updated after the patient was seen, as this information can be updated by other users. Medical History (Updated 10/08/24 @ 09:45 by Era Colbert APRN) Diaphragm dysfunction Elevated diaphragm Respiratory symptoms Diaphragm, eventration MCI (mild cognitive impairment) Memory loss MARYLOU (obstructive sleep apnea) Surgical History History of hip replacement, total History of hip replacement, total History of knee replacement procedure of right knee Family History Other Coronary artery disease Diabetes Heart attack Hypertension Social History (Updated 10/08/24 @ 09:24 by Elizabeth Mccarthy RN) Smoking Status: Never smoker alcohol intake: current alcohol intake frequency: 0-2 drinks per day substance use type: denies use current occupational status: employed Travel in the last 8 weeks?: None household members: spouse housing: house marital status: Review of Systems Review of Systems Review of systems:: pertinent systems reviewed and negative unless documented below Review of systems (narrative): Review of Systems: General: No recent weight changes, no fever, no sleep disturbances Respiratory: No cough, no shortness of air, no recurring pulmonary infections Cardiovascular/peripheral vascular: No chest pain, no palpitations, no edema, no shortness of breath Gastrointestinal: No new onset incontinence, normal bowel movements reported Genitourinary: No new onset incontinence Musculoskeletal: Low back pain, leg pain with walking Psychiatric: [Normal mood/affect] Neurological: [Denies weakness in extremities], [denies balance issues] Meds Home Medications and Allergies Home Medications ?Medication ?Instructions ?Recorded ?Confirmed ?Type omega-3 fatty acids 1,000 mg 1,000 mg PO DAILY 02/09/21 10/08/24 History capsule thiamine HCl (vitamin B1) 100 mg 100 mg PO DAILY #30 tabs 02/09/21 10/08/24 Rx tablet duloxetine 60 mg capsule,delayed 60 mg PO DAILY 03/23/21 10/08/24 History release (Cymbalta) mecobalamin (vitamin B12) 5,000 See Rx Instructions PO .COMPLEX 06/09/21 10/08/24 History mcg disintegrating tablet atorvastatin 20 mg tablet 20 mg PO DAILY 03/11/22 10/08/24 History diphenhydramine HCl 25 mg capsule 25 mg PO HS PRN allergies 07/23/22 10/08/24 History (Allergy (diphenhydramine)) losartan 50 mg tablet 100 mg PO DAILY 11/09/22 10/08/24 History magnesium 200 mg tablet 200 mg PO DAILY 11/09/22 10/08/24 History celecoxib 200 mg capsule 200 mg PO DAILY 08/30/23 10/08/24 History oxybutynin chloride 10 mg 15 mg PO DAILY 09/26/23 10/08/24 History tablet,extended release 24 hr amlodipine 5 mg tablet 5 mg PO DAILY 03/21/24 10/08/24 History famotidine 40 mg tablet 40 mg PO DAILY 03/21/24 10/08/24 History memantine 10 mg tablet 10 mg PO BID #180 tabs 03/21/24 10/08/24 Rx New Prescriptions to Start Prescriptions: Allergies Allergy/AdvReac Type Severity Reaction Status Date / Time bee venom protein (honey bee) AdvReac Intermediate swelling Verified 03/21/24 08:04 at sight Objective Vital signs: Pulse Resp BP Pulse Ox O2 Del Method 86 18 143/47 H 95 Room Air 10/08/24 09:21 10/08/24 09:21 10/08/24 09:21 10/08/24 09:21 10/08/24 09:21 Narrative: Physical Exam: General: Alert and oriented x3, no acute distress, pleasant and cooperative Lungs: Respirations even and unlabored, symmetrical chest expansion Eyes: PERRL Musculoskeletal: Flexion and extension of lumbar [spine] somewhat guarded secondary to pain, [antalgic gait noted] positive leg raise Neurological: Speech clear, no gross sensory deficit Additional findings Additional findings: FINDINGS: Multiplanar MR imaging of the lumbar spine was performed without contrast. On the sagittal T2-weighted images, there is abnormal decreased signal throughout the lumbar discs. The vertebrae are of normal height. Minimal spondylolisthesis of L5 on S1. There is narrowing of the AP dimension to the lumbar spinal canal, probably due to shortened pedicles. L1-2: Moderate diffuse disc bulge. Moderate bilateral neural foraminal narrowing. L2-3: Moderate diffuse disc bulge. Moderate to high-grade right and moderate left neural foraminal narrowing. High-grade spinal canal compromise well seen on image 9 of series 5. L3-4: Large disc bulge. Bilateral facet hypertrophy. High-grade spinal canal compromise well seen on image 13 of series 5. High-grade left and moderate to high-grade right neural foraminal narrowing. L4-5: Hxci-uc-exchwdse diffuse disc bulge. Wlzh-hy-smsigfxp bilateral neural foraminal narrowing. L5-S1: Moderate diffuse disc bulge. Bilateral facet hypertrophy. Moderate right and moderate to high-grade left neural foraminal narrowing. IMPRESSION: High-grade spinal canal compromise at L2-3 and L3-4. Neural foraminal compromise particularly evident bilaterally at L2-3 and L3-4 and on the left at L5-S1. Reviewed, Interpreted and Dictated by Chuy Bui MD Transcribed by Nisha Little Authenticated and [facility] Assessment and Plan *Assessment and plan (1) Degenerative disc disease: Status: Acute Category: Medical (2) Lumbar radiculopathy: Status: Acute Category: Medical Code(s): M54.16 - Radiculopathy, lumbar region (3) Lumbar spinal stenosis: Status: Acute Category: Medical Code(s): M48.061 - Spinal stenosis, lumbar region without neurogenic claudication Plan Patient is experiencing worsening pain in her low back with numbness and tingling into her lower extremities. Patient did have limited range of motion of her lumbar spine with a positive leg raise. I did discuss with patient that I do believe they would benefit from a lumbar epidural steroid injection. Risk and benefits were discussed with patient and the patient would like to proceed forward with this plan of care. Patient is not on any blood thinner. Patient has tried and failed conservative therapy including oral medications, heat and ice, topicals, physical therapy and continued at home stretching exercise for longer than 12 weeks that was physician guided. Patient has had chronic back pain for longer than 6 months. Patient has not had any epidurals in the past to compare to. We did review over her lumbar imaging that did have significant stenosis at the L3-L4 level. I did discuss with her that I would like to do the epidural at this vertebra. Patient is agreeable to this. I will order the patient a compounded cream. We will schedule the patient for an LESI L3-L4 under fluoroscopy. Patient has been instructed to contact the clinic with any concerns before the next appointment. Dr. Rodriguez has reviewed this note and agrees with this plan of care. This note was dictated using voice recognition software and make contain errors or omissions. All injections are used with Lidocaine, Bupivacaine and dexamethasone. Occasionally urine drug screen is needed to verify patient's compliance with our office pain contract. This is ordered based off specific treatments related to chronic pain with the potential to abuse certain medications.
== END 2024-10-08 23:59 | disposition home or self-care (01) ==
LOC: SC.PAIN 08:52
PROVIDERS: PCP Family Medicine; Visit Provider Nurse Practitioner Family
DX: M48.061 Spinal stenosis, lumbar region without neurogenic claudication (principal); M54.16 Radiculopathy, lumbar region; Z79.1 Long term (current) use of non-steroidal anti-inflammatories (NSAID)
CPT/HCPCS: 99202; G0463

== ENCOUNTER 2024-11-16 02:26 | Emergency (ER) | payer BC, MEDICARE, SELFPAY ==
--- NOTE | 2024-11-16 02:33 | CT_ITS ---
PROCEDURE INFORMATION: Exam: CT Cervical Spine Without Contrast Exam date and time: 11/16/2024 2:56 AM Age: 74 years old Clinical indication: Neck pain; Additional info: L side muscle severe ttp, HX lumbar radiculopathy TECHNIQUE: Imaging protocol: Computed tomography of the cervical spine without contrast. Radiation optimization: All CT scans at this facility use at least one of these dose optimization techniques: automated exposure control; mA and/or kV adjustment per patient size (includes targeted exams where dose is matched to clinical indication); or iterative reconstruction. COMPARISON: CT CERVICAL SPINE WO CON 08/14/2023 7:43 PM FINDINGS: Bones: No acute fracture. Normal alignment. Multilevel degenerative disc and joint space changes most pronounced at C6/7 and C7/T1 levels. Lungs: Unremarkable. Soft tissues: Unremarkable. IMPRESSION: No acute cervical spine findings identified.
[2024-11-16 02:35] VITALS: BP 191/84; PULSE 92; RESP 16; TEMP 37.3; O2SAT 97; BMI 41.5
--- NOTE | 2024-11-16 02:36 | ECG_ITS ---
APPROVED REPORT Exam: Resting ECG HR:84 bpm ECG Measurements Heart Rate 84 AXES CA 178 P 67 QRSd 97 QRS -50 QT 382 T 73 QTc 422 Conclusion SINUS RHYTHM LEFT ANTERIOR FASCICULAR BLOCK [QRS AXIS <= -45, QR IN I, RS IN II] VOLTAGE CRITERIA FOR LVH [MEETS CRITERIA IN ONE OF: R(aVL), S(V1), R(V5), R(V5/V6)+S(V1)] POSSIBLE ANTERIOR MYOCARDIAL INFARCTION , PROBABLY OLD [30 ms Q WAVE IN V3/V4, OR R < 0.2 mV IN V4] INFERIOR MYOCARDIAL INFARCTION , PROBABLY OLD [40+ ms Q WAVE AND/OR ST/T ABNORMALITY IN II/aVF] No STEMI Electronically signed by : SADE MANLEY, 11/17/2024 03:56:08
--- NOTE | 2024-11-16 02:48 | HMH.EDGENADL ---
Discharge Plan Disposition Patient Disposition: Home, Self-Care Condition: Good Prescriptions Prescriptions: New methocarbamol 500 mg tablet 250 mg PO BID PRN (Reason: muscle spasm) Qty: 10 0RF lidocaine 5 % adhesive patch,medicated See Rx Instructions .ROUTE .COMPLEX Qty: 15 0RF Rx Instructions: Apply to most painful area and leave on for 12 hours. Remove and leave off for 12 hours before using a new patch. No Action omega-3 fatty acids 1,000 mg capsule 1,000 mg PO DAILY thiamine HCl (vitamin B1) 100 mg tablet 100 mg PO DAILY Qty: 30 11RF losartan 50 mg tablet 100 mg PO DAILY mecobalamin (vitamin B12) 5,000 mcg tablet,disintegrating See Rx Instructions PO .COMPLEX Rx Instructions: PO daily; atorvastatin 20 mg tablet 20 mg PO DAILY Patient Comments: TAKE 1 TABLET BY MOUTH ONCE DAILY oxybutynin chloride 10 mg tablet extended release 24hr 15 mg PO DAILY Patient Comments: TAKE 1 TABLET BY MOUTH ONCE DAILY celecoxib 200 mg capsule 200 mg PO DAILY duloxetine [Cymbalta] 60 mg capsule,delayed release(DR/EC) 60 mg PO DAILY diphenhydramine HCl [Allergy (diphenhydramine)] 25 mg capsule 25 mg PO HS PRN (Reason: allergies) magnesium 200 mg tablet 200 mg PO DAILY amlodipine 5 mg tablet 5 mg PO DAILY famotidine 40 mg tablet 40 mg PO DAILY Patient Comments: TAKE 1 TABLET BY MOUTH ONCE DAILY memantine 10 mg tablet 10 mg PO BID MDD 20 mg Qty: 180 3RF Referrals Follow up/Referrals: Vick Rodriguez MD [Nurse Practitioner, Pain Management] - See instructions Referral Note: sees pain mgmt for low back, now having neck problems Activity Restrictions/Add. Instructions Additional Instructions/Restrictions: You were evaluated in the ER and are believed to be appropriate for discharge at this time. Use the prescribed lidocaine patches as directed. Take Tylenol and ibuprofen if needed for pain, do not exceed the recommended dose on the bottle. Drink water and eat a small snack each time you take these medications to avoid side effects. Do not take ibuprofen for more than 1 week in a row. You have also been prescribed a low-dose muscle relaxer. You should only be taking 1/2 tablet of the muscle relaxer. This medication may make you weak or sleepy, so be very careful with it and if you notice the side effects, immediately stop taking it. Do not drive or operate machinery after taking this medication. Talk to your pain management team about your neck problems. Follow-up with your primary care doctor for reevaluation in 2 to 3 days Return to the ER with any new, worsening, or otherwise concerning symptoms. Clinical Impressions Clinical Impression: Muscle spasm, Neck pain on left side Instructions Patient Instructions: DI for Neck Pain Print Language Print Language: Korean Discharge ED Provider: Dia Blackburn General Adult HPI General Chief complaint: Neck Pain/Injury Stated complaint: pain back of neck radiating down Time Seen by Provider: 11/16/24 02:29 Mode of Arrival: Ambulatory Source of Information: Patient Description of Symptoms (Recalled from ER Triage Doc. by RN): Pt reports she woke up this AM with 10/10 sharp neck and head pain. Pt also reports having right shoulder pain that has been ongoing for approx 2 weeks. Pt denies injury. History of Present Illness HPI narrative: 74-year-old female presents to the ER this morning with sharp left-sided posterior neck pain radiating into the head. Patient reports this pain has been going on for at least a week, she has also been having some mild right sided pain but not nearly to the degree of the left side. She denies any falls or injuries. She is not having any numbness, tingling, or weakness. She has severe problems in her low back and is scheduled to receive injections soon for this problem. Review of records demonstrates a history of lumbar spinal stenosis, radiculopathy. She is not having any vision changes, ringing in the ears, no neurologic deficits, she does have pain when trying to lift the left arm but no injuries. No chest pain or difficulty breathing. No abdominal symptoms. No recent illness. No other complaints or concerns. Patient reports the last time she took any medication was 3 ibuprofen 8 hours prior to arrival. She has not taken any other meds for her symptoms. Related Data Home Medications ?Medication ?Instructions ?Recorded ?Confirmed omega-3 fatty acids 1,000 mg 1,000 mg PO DAILY 02/09/21 10/08/24 capsule duloxetine 60 mg capsule,delayed 60 mg PO DAILY 03/23/21 10/08/24 release (Cymbalta) mecobalamin (vitamin B12) 5,000 See Rx Instructions PO .COMPLEX 06/09/21 10/08/24 mcg disintegrating tablet atorvastatin 20 mg tablet 20 mg PO DAILY 03/11/22 10/08/24 diphenhydramine HCl 25 mg capsule 25 mg PO HS PRN allergies 07/23/22 10/08/24 (Allergy (diphenhydramine)) losartan 50 mg tablet 100 mg PO DAILY 11/09/22 10/08/24 magnesium 200 mg tablet 200 mg PO DAILY 11/09/22 10/08/24 celecoxib 200 mg capsule 200 mg PO DAILY 08/30/23 10/08/24 oxybutynin chloride 10 mg 15 mg PO DAILY 09/26/23 10/08/24 tablet,extended release 24 hr amlodipine 5 mg tablet 5 mg PO DAILY 03/21/24 10/08/24 famotidine 40 mg tablet 40 mg PO DAILY 03/21/24 10/08/24 Previous Rx's ?Medication ?Instructions ?Recorded thiamine HCl (vitamin B1) 100 mg 100 mg PO DAILY #30 tabs 02/09/21 tablet memantine 10 mg tablet 10 mg PO BID #180 tabs 03/21/24 lidocaine 5 % topical patch See Rx Instructions topical 11/16/24 .COMPLEX #15 ea methocarbamol 500 mg tablet 250 mg (1/2 x 500 mg) PO BID PRN 11/16/24 muscle spasm #10 tabs Allergies Allergy/AdvReac Type Severity Reaction Status Date / Time bee venom protein (honey bee) AdvReac Intermediate swelling Verified 03/21/24 08:04 at sight [facility] Disclaimer: The information contained in this section may have been updated after the patient was seen, as this information can be updated by other users. Medical History (Updated 11/16/24 @ 03:48 by Dia Blackburn MD) Diaphragm dysfunction Elevated diaphragm Respiratory symptoms Diaphragm, eventration MCI (mild cognitive impairment) Memory loss MARYLOU (obstructive sleep apnea) Surgical History History of hip replacement, total History of hip replacement, total History of knee replacement procedure of right knee Family History Other Coronary artery disease Diabetes Heart attack Hypertension Social History (Updated 10/08/24 @ 09:24 by Elizabeth Mccarthy RN) Smoking Status: Never smoker alcohol intake: current alcohol intake frequency: 0-2 drinks per day substance use type: denies use current occupational status: employed Travel in the last 8 weeks?: None household members: spouse housing: house marital status: Have you lived/traveled outside US in past 30 days?: No Contact w/someone who lives/traveled outside US past 30 days?: No Exposure to someone with infectious disease in past 14 days?: No Do you have a fever (greater than 100.4 F or 38 C)?: No Have you tested positive for COVID-19?: No Exposed to someone with COVID-19 in past 14 days?: No Do you have a sore throat?: No Do you have a cough?: No Do you have any weakness?: No Do you have any diarrhea?: No Are you experiencing any unusual bleeding?: No Do you have any muscle aches/pain?: No Do you have any abdominal pain?: No Are you experiencing loss of taste or smell?: No Other Medical History Have you received the Flu Vaccine for this season: Yes Have you received the Pneumonia Vaccine: Yes ROS Obtained: Yes Systems reviewed as appropriate & no additional complaints except as documented Per HPI Physical Exam General General appearance: alert, in no apparent distress and obese Head Head exam: atraumatic, normocephalic and other (Mild superficial occipital tenderness with no bruising, hematoma, deformity, crepitus, or other evidence of trauma) Eye Eye exam: Present PERRL and EOMI ENT ENT exam: Present mucous membranes moist Neck Neck exam: Present normal inspection, trachea midline, tenderness (Left cervical paraspinal muscles and left trapezius muscle with obvious spasm, much more mild findings in the same distribution on the right; no traumatic findings) and other (Notably, no vertebral tenderness); Absent full ROM (Range of motion looking to the left is limited secondary to pain in the left posterior neck paraspinal muscles), meningismus or lymphadenopathy Chest Chest inspection: Present symmetric chest wall rise; Absent tenderness Respiratory Respiratory exam: Present normal lung sounds bilaterally; Absent respiratory distress, wheezes or stridor Cardiovascular Cardiovascular exam: Present regular rate and normal rhythm Abdominal Exam Abdominal exam: Present soft; Absent distention or tenderness Extremities Exam Extremities exam: Present full ROM; Absent edema Neurological Exam Neurological exam: Present alert, oriented X3, CN II-XII intact, normal gait and other (Full strength and sensation throughout the extremities, no paresthesias); Absent motor sensory deficit Psychiatric Psychiatric exam: Present normal affect and normal mood Skin Skin exam: Present warm and dry Medical Decision Making Medical Records Medical records reviewed: Yes I reviewed the patient's medical records. Screening: Per USPSTF and CDC recommendations, given the prevalence of disease in our region, it is our hospital?s policy to screen for HIV and viral Hepatitis for all patients aged 18 and over and those with ongoing risk factors. Case Inquiry Pt receiving controlled substance: No Vital Signs: 11/16/24 02:35 11/16/24 03:00 11/16/24 03:05 Temperature 99.1 F Temperature Source Oral Pulse Rate 84 76 Pulse Rate [Left] 92 H Respiratory Rate 16 Blood Pressure 206/148 H 168/71 H Blood Pressure [Right Arm] 191/84 H Blood Pressure Mean 172 114 Blood Pressure Mean [Right Arm] 119 Blood Pressure Source Blood Pressure Source [Right Arm] Automatic Cuff Blood Pressure Position 02 Sat by Pulse Oximetry 97 96 96 Oxygen Delivery Method Room Air 11/16/24 03:31 11/16/24 03:47 Temperature 97.6 F Temperature Source Oral Pulse Rate 79 72 Pulse Rate [Left] Respiratory Rate 16 Blood Pressure 141/65 H 141/65 H Blood Pressure [Right Arm] Blood Pressure Mean 95 Blood Pressure Mean [Right Arm] Blood Pressure Source Automatic Cuff Blood Pressure Source [Right Arm] Blood Pressure Position Supine 02 Sat by Pulse Oximetry 96 Oxygen Delivery Method Room Air Lab Data Lab Results 11/16/24 02:46: WBC 7.6, RBC 4.07 L, Hgb 12.6, Hct 38.0, MCV 93.4, MCH 31.0, MCHC 33.2, RDW 13.1, Plt Count 310, MPV 10.3, Neut % (Auto) 70.0, Lymph % (Auto) 18.7, Doddridge % (Auto) 7.5, Eos % (Auto) 2.8, Baso % (Auto) 0.7, Neut # (Auto) 5.3, Lymph # (Auto) 1.4, Doddridge # (Auto) 0.6, Eos # (Auto) 0.2, Baso # (Auto) 0.1, Sodium 137, Potassium 4.3, Chloride 100, Carbon Dioxide 28, Anion Gap 13.3, BUN 15, Creatinine 0.70, Estimated Creat Clear 38, Estimated GFR 82, Est GFR ( Amer) 100, Glucose 132 H, Calcium 8.9, Total Bilirubin 0.9, AST 36, ALT 20, Alkaline Phosphatase 70, Troponin I < 0.01, Total Protein 7.4, Albumin 4.0, Globulin 3.4 H, Albumin/Globulin Ratio 1.2 11/16/24 02:49: Lactate 1.7 11/16/24 02:46 11/16/24 02:46 Orders (Tests/Meds): ED MEDICATIONS Discontinued Medications Generic Name Dose Route Start Last Admin Trade Name Benedicto PRN Reason Stop Dose Admin Acetaminophen 650 mg 11/16/24 02:33 11/16/24 02:50 Acetaminophen 325mg Tab PO 11/16/24 02:34 650 mg ONCE ONE Administration Lidocaine 1 each 11/16/24 02:33 11/16/24 03:00 Lidocaine 5% Transdermal Patch TD 11/16/24 02:34 1 each ONCE ONE Administration Methocarbamol 500 mg 11/16/24 02:33 11/16/24 02:50 Methocarbamol 500mg Tablet PO 11/16/24 02:34 500 mg ONCE ONE Administration ORDERS Category Date Time Status CT cervical spine wo con Stat Cat Scan 11/16/24 02:[address] head/brain wo con Stat Cat Scan 11/16/24 02:49 Completed CBC w/Auto Diff [Complete Blood Count Auto Diff] Stat Lab 11/16/24 02:46 Completed CMP [Comprehensive Metabolic Panel] Stat Lab 11/16/24 02:46 Completed Lactic Acid Stat Lab 11/16/24 02:49 Completed Trop I [Troponin I] Stat Lab 11/16/24 02:46 Completed Troponin I Q3H Lab 11/16/24 05:45 Ordered Troponin I Q3H Lab 11/16/24 08:45 Ordered Medical Decision Narrative: In summary, this 74-year-old female with comorbidities described in the HPI presents to the emergency department today with left posterior neck pain radiating into the scalp. On initial evaluation patient is hemodynamically stable, afebrile, GCS 15, no neurologic deficits, no traumatic findings, the most notable findings on exam are tenderness of the cervical paraspinal muscles and trapezius muscles significantly worse on the left than the right with obvious muscle spasm, no vertebral tenderness. Differential diagnosis includes but is not limited to muscle spasm, cervicalgia, cervical radiculopathy, considered brachial plexus injury but patient has no history consistent with this and no neurologic deficits or paresthesias, no radiation of pain down the left arm. I did consider atypical presentation of ACS though I have very low suspicion for this given patient is hemodynamically stable and having no chest pain or difficulty breathing. Also consider the possibility of occipital neuralgia, atypical migraine, space-occupying lesion. I do not suspect spontaneous intracranial bleed since patient has no red flag symptoms of headache such as thunderclap onset or maximal intensity at onset. No neurologic deficits is also reassuring against this diagnosis. Based on these concerns, I ordered EKG, cardiac enzymes, basic hematologic and serum labs, CT head, CT cervical spine. ECG personally interpreted demonstrates sinus rhythm, rate 84, left axis deviation, normal IA and QTc slight abnormalities in the ST segments of the inferior leads in leads I and aVL are not consistent with STEMI but possible previous injury. Patient received Tylenol, lidocaine patch, methocarbamol initially for treatment. Labs personally reviewed demonstrate no leukocytosis or anemia, normal platelets, CMP nonactionable, initial troponin undetectable less than 0.01 and in the setting of nonischemic ECG and patient's duration of symptoms I do not believe serial troponins are indicated at this time, lactic normal at 1.7. CT head personally turbid does not demonstrate acute intracranial abnormality, no space-occupying lesion or intracranial bleed, see radiology read for final interpretation. CT cervical spine demonstrates degenerative changes without other acute abnormality, see radiology reads for full interpretation. On reassessment patient reports symptoms are somewhat improved. She is appropriate for discharge at this time. I prescribed short course of low-dose methocarbamol with strict precautions for this medication since she is in the geriatric population, though she is currently tolerating the medication well. I also prescribed lidocaine patches and gave instructions for use. Patient is already seeing pain management so I sent a referral back to them to address her neck pain as well. Patient was given instructions on symptomatic management, medication use, follow up instructions, and return precautions for the emergency department. Patient indicated understanding and was discharged in stable condition. Critical Care Critical Care Time Critical Care Time: No
--- NOTE | 2024-11-16 02:49 | CT_ITS ---
PROCEDURE INFORMATION: Exam: CT Head Without Contrast Exam date and time: 11/16/2024 2:54 AM Age: 74 years old Clinical indication: Pain; Headache; Additional info: L side neck pain radiating into head, muscle spasm TECHNIQUE: Imaging protocol: Computed tomography of the head without contrast. Radiation optimization: All CT scans at this facility use at least one of these dose optimization techniques: automated exposure control; mA and/or kV adjustment per patient size (includes targeted exams where dose is matched to clinical indication); or iterative reconstruction. COMPARISON: CT HEAD/BRAIN WO CON 08/14/2023 7:43 PM FINDINGS: Brain: No hemorrhage. Unremarkable white matter. No mass effect. Cerebral ventricles: No ventriculomegaly. Paranasal sinuses: Visualized sinuses are unremarkable. No fluid levels. Mastoid air cells: Visualized mastoid air cells are well aerated. Bones: Unremarkable. No acute fracture. Soft tissues: Unremarkable. IMPRESSION: No acute intracranial abnormality.
[2024-11-16] MEDS: METHOCARBAMOL 500MG TABLET 500 MG PO (02:50)
[2024-11-16] MEDS: ACETAMINOPHEN 325MG TAB 650 MG PO (02:50)
[2024-11-16 02:52] LABS: Hematocrit 38.0 % (37.0-47.0); Hemoglobin 12.6 g/dL (12.2-16.2); Immature Granulocytes % 0.3 %; Mean Corpuscular HGB Conc 33.2 g/dL (31.8-35.4); Mean Corpuscular Hemoglobin 31.0 pg (27.0-31.2); Mean Corpuscular Volume 93.4 fl (81-99); Nucleated Red Blood Cells % 0 %; Platelet Count 310 K/mm3 (142-424); Red Blood Count 4.07 M/mm3 (4.20-5.40); Red Cell Distribution Width-SD 44.7 fL; White Blood Count 7.6 K/mm3 (4.8-10.8)
[2024-11-16 02:58] LABS: Albumin Level 4.0 g/dl (3.5-5.0); Chloride 100 mmol/L (98-107); Potassium 4.3 mmoL/L (3.5-5.1); Sodium 137 mmol/L (136-145)
[2024-11-16 03:00] VITALS: BP 206/148; PULSE 84; O2SAT 96
[2024-11-16] MEDS: LIDOCAINE 5% TRANSDERMAL PATCH 1 EACH TD (03:00)
--- OUTSIDE RECORDS SUMMARY | 2024-11-16 03:00 | XMS_ITS | Clinical Summary ---
Author Organization [facility] Address [address] [place] [address] Care Team Providers Care Hoisting Laborer Name Role Phone Moe Evangelista MD Primary Care Provider [phone] Allergies No known active allergies Medications losartan [...] C SCREENING 12/16/2020 COVID-19 Vaccine ( season) 10/29/202408/2020 INFLUENZA VACCINE 11/28/2024 Medical Devices Implanted Type Area Barrel Leveler Device Identifier Shelf Expiration Date Model / Serial / Lot Cmt Bone Palacos R Hi/Visc 1x40 - [id number] Implanted:Qty : 2 on 12/22/2020 by Jorje Hurley MD at [facility] Implant Right: Knee [employer] 04/27/2022 [id number] / / [id number] Dev Contrl Tiss Stratafix Symm Pds Plus Onile Ct-1 45cm - [id number] Implanted:Qty : 1 on 12/22/2020 by Jorje Hurley MD at [facility] Implant Right: Knee ETH[employer] DIV [employer] J AND J [id number] / / [id number] Art Legion Cr Hf Xlpe Sz3to4 9mm - [id number] Implanted:Qty : 1 on 12/22/2020 by Jorje Hurley MD at [facility] Implant Right: Knee [employer] [id number] 09/27/2030 [id number] / / [id number] Comp Fem Legion Oxinium Cr Nrw Sz5n Rt - [id number] Implanted:Qty : 1 on 12/22/2020 by Jorje Hurley MD at [facility] Implant Right: Knee [employer] [id number] 02/05/2030 [id number] / / [id number] Pat Gen2 Resrf 32mm - [id number] Implanted:Qty : 1 on 12/22/2020 by Jorje Hurley MD at [facility] Implant Right: Knee [employer] 10/12/2030 [id number] / / [id number] Base Tib/Kn Gen2 Nonpor Ti Sz4 Rt - [id number] Implanted:Qty : 1 on 12/22/2020 by Jorje Hurley MD at [facility] Implant Right: Knee [employer] 09/21/2030 [id number] / / [id number] Totl Kn Archie Pabon Nephjustin - [id number] Implanted:Qty : 1 on 12/22/2020 by Jorje Hurley MD at [facility] Implant Right: Knee [employer] ROSETTE [id number] / / Bilateral Hips Insurance MEDICARE A ONLY Member Subscriber Plan / Payer (Ef fective 2017-Present) Name:Mayte Xiao G Member ID:[id number] Relation to Subscriber:Self Name:Xiao Hernandez Subscriber ID:[id number] Payer ID:[id number] Group ID:Not on file Type:Not on file Address: [facility] [id number] [address] Care Teams Hoisting Laborer Relationship Specialty Start Date End Date Moe Evangelista MD [address] [place] [address] [place] [id number] PCP - General Family Medicine 12/17/20
[2024-11-16 03:01] LABS: Alanine Aminotransferase 20 U/L (12-78); Albumin/Globulin Ratio 1.2 (1.1-1.8); Alkaline Phosphatase 70 U/L (38-126); Anion Gap 13.3 mEq/L (5-15); Aspartate Amino Transferase 36 U/L (14-36); Bilirubin,Total 0.9 mg/dl (0.2-1.3); Blood Urea Nitrogen 15 mg/dl (7-17); Carbon Dioxide 28 mmol/L (22.0-30.0); Creatinine Clearance Estimated 38 mL/min (50-200); Creatinine,Serum 0.70 mg/dl (0.52-1.04); Estimated Glomerular Filt Rate 82 ml/min (>60); GFR (African American) 100 ML/MIN (>60); Globulin 3.4 g/dL (1.3-3.2); Total Protein,Serum 7.4 g/dl (6.3-8.2)
[2024-11-16 03:02] LABS: Calcium 8.9 mg/dl (8.4-10.2); Glucose 132 mg/dl (74-100)
[2024-11-16 03:05] VITALS: BP 168/71; PULSE 76; O2SAT 96
[2024-11-16 03:14] LABS: Troponin I < 0.01 ng/ml (0.00-0.034)
[2024-11-16 03:31] VITALS: BP 141/65; PULSE 79; O2SAT 96
[2024-11-16 03:47] VITALS: BP 141/65; PULSE 72; RESP 16; TEMP 36.4; O2SAT 98
[2024-11-16 03:48] VITALS: BP 141/65; PULSE 76; RESP 16; TEMP 37.2
== END 2024-11-16 03:56 | disposition home or self-care (01) ==
PROVIDERS: Emergency Provider Emergency Medicine
DX: M54.2 Cervicalgia (principal); M62.838 Other muscle spasm; I10 Essential (primary) hypertension
CPT/HCPCS: 70450; 72125; 80053; 83605; 84484; 85025; 93005; 99285

== ENCOUNTER 2024-11-19 13:09 | Outpatient (CLI) | payer BC, MEDICARE, SELFPAY ==
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
--- OUTSIDE RECORDS SUMMARY | 2024-10-24 08:58 | XMS_ITS ---
Author Organization [facility] Address [address] [place] [address] [address] [place] [id number] Care Team Providers Care Machinist Class B Name Role Phone Moe Evangelista Primary Care Provider Encounters Encounter Location Date Provider Diagnosis [facility] [place] [id number] 10/24/2024 Moe Evangelista Encounter for screen ing for malignant neoplasm of breast Z12.31 and Encounter for screening for osteoporosis Z13.820 Assessments Encounter Date Diagnosis (ICD Code) Assessment Notes Treatment Notes Treatment Clinical Notes Section Notes 10/24/2024 Encounter for screening for malignant neoplasm of breast (ICD-10 - Z12.31) 10/24/2024 Encounter for screening for osteoporosis (ICD-10 - Z13.820) Plan Of Treatment Pending Test Test Name Order Date Mammogram 10/24/2024 Next Appt Details Provider Name:Moe York ry, 12/12/2024 09:00:00 AM, [address], [address], [place], [id number], Progress Notes * Denise HERNANDEZOB:0 1950 (74 yo F)Acc No.[id number]:10/24/2024 Patient: Georgie IGLESIASherine :1950 A ge:74 Y S ex:Female Address:[address] [place] [address] [place] [address] Subjective: * Chief Complaints: * * Medical History: * Surgical History: * Hospitalization/Major Diagno stic Procedure: * Medications: Objective: * Vitals: * Physical Examination: Assessment: * Assessment: 1. E ncounter for screening for malignant neoplasm of breast - Z12.31 (Primary) ?2. E ncounter for screening for osteoporosis - Z13.820 Plan: * Treatment: 2.?Encounter for screening for osteoporosis?Imaging: Bone density* Krista Marie 10/24/2024 01:0 2:35 PM EDT >sent to Monik gonzales referral to [facility] , please schedule with Mammo * Procedure Codes: * true * Date: Generated for Gabino hinojosa/Crystal/eTransmitting on: 0 11/19/2024 01:16 PM EDT
--- NOTE | 2024-11-19 13:15 | XR_ITS ---
FINAL REPORT TECHNIQUE: Bone densitometry calculations of the lumbar spine and bilateral forearms were obtained. CLINICAL HISTORY: ScREENING, Colten hip replacements COMPARISON: None FINDINGS: Using L1-4, the bone mineral density of the spine is 1.358 g/cm2, corresponding to T-score of 2.8 and a Z score of 5.1. This is within the range of normal. Using the left forearm, the bone mineral density of the mid is 0.562 g/cm2, corresponding to a T-score of -0.8 and a Z-score of 1.5. This is within the range of normal. Using the right forearm, the bone mineral density of the mid is 0.615 g/cm?, corresponding to a T-score of 0.1 and a Z-score of 2.4. This is within the range of normal. NOTE: T-score: Standard deviation compared with peak bone mass of young adult mean. *Following the recommendations of the International Society of Bone densitometry, classification of hip BMD is based on the lower of two T-scores; total hip or femoral neck. IMPRESSION: 1. Bone mineral density of the lumbar spine within the range of normal. 2. Bone mineral density of the bilateral forearms within the range of normal. Reviewed, Interpreted and Dictated by Janett Gaffney MD Transcribed by Rosa Proctor Authenticated and [facility]
--- OUTSIDE RECORDS SUMMARY | 2024-11-19 13:16 | XMS_ITS | Continuity of Care Document ---
Author Name [address] [facility]. Address [address] [place] [address] Organization Unknown Address [address] [place] [address] Medications No known medications Problems No known problems
--- OUTSIDE RECORDS SUMMARY | 2024-11-19 13:17 | XMS_ITS | Clinical Summary ---
Author Organization [facility] Address [address] [place] [address] Care Team Providers Care Waredresser Name Role Phone Moe Evangelista MD Primary Care Provider [phone] Allergies No known active allergies Medications losartan [...] ANNUAL PHYSICAL 12/16/2020 HEPATITIS C SCREENING 12/16/2020 INFLUENZA VACCINE 09/28/2024 COVID-19 Vaccine ( season) 10/29/202408/2020 Medical Devices Implanted Type Area Paint Preparer Device Identifier Shelf Expiration Date Model / Serial / Lot Cmt Bone Palacos R Hi/Visc 1x40 - [id number] Implanted:Qty : 2 on 12/22/2020 by Jorje Hurley MD at [facility] Implant Right: Knee [employer] 04/27/2022 [id number] / / [id number] Dev Contrl Tiss Stratafix Symm Pds Plus Oniel Ct-1 45cm - [id number] Implanted:Qty : 1 on 12/22/2020 by Jorje Hurley MD at [facility] Implant Right: Knee [employer] J [employer] J [id number] / / Insrt Art Legion Cr Hf Xlpe Sz3to4 9mm - [id number] Implanted:Qty : 1 on 12/22/2020 by Jorje Hurley MD at [facility] Implant Right: Knee [employer] [id number] 09/27/2030 [id number] / / [id number] Comp Fem Legion Oxinium Cr Nrw Sz5n Rt - [id number] Implanted:Qty : 1 on 12/22/2020 by Jorje Hurley MD at [facility] Implant Right: Knee [employer] [id number] 02/05/2030 [id number] / / [id number] Pat Gen2 Resrf 32mm - [id number] Implanted:Qty : 1 on 12/22/2020 by Jorje Hurley MD at [facility] Implant Right: Knee [employer] 10/12/2030 [id number] / / [id number] Base Tib/Kn Gen2 Nonpor Ti Sz4 Rt - [id number] Implanted:Qty : 1 on 12/22/2020 by Jorje Hurley MD at [facility] Implant Right: Knee [employer] 09/21/2030 [id number] / / [id number] Totl Kn Archie Pabon Nephjustin - [id number] Implanted:Qty : 1 on 12/22/2020 by Jorje Hurley MD at [facility] Implant Right: Knee [employer] ROSETTE [id number] / / Bilateral Hips Insurance MEDICARE A ONLY Member Subscriber Plan / Payer (Ef fective 2017-Present) Name:Mayte Xiao G Member ID:[id number] Relation to Subscriber:Self Name:Xiao Hernandez Subscriber ID:[id number] Payer ID:[id number] Group ID:Not on file Type:Not on file Address: [facility] [id number] [address] Care Teams Waredresser Relationship Specialty Start Date End Date Moe Evangelista MD [address] [place] [id number] PCP - General Family Medicine 12/17/20
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
--- NOTE | 2024-11-19 13:54 | MM_ITS ---
PROCEDURE INFORMATION: Exam: MG Bilateral Screening 3D Mammography Exam date and time: 11/19/2024 1:53 PM Age: 74 years old Clinical indication: Screening examination TECHNIQUE: Imaging protocol: Bilateral Screening tomosynthesis and 2D mammography including computer-aided detection (CAD) when performed. COMPARISON: 1. MG MM DIG SCREENING MAMM BI W/CAD 01/25/2023 8:03 AM 2. MG MM DIG SCREENING MAMM BI W/CAD 09/10/2021 9:25 AM FINDINGS: MAMMOGRAPHY: Breast composition: There are scattered areas of fibroglandular density. Mass: No suspicious masses. Architectural distortion: None. Calcifications: No suspicious calcifications. Asymmetric density: None. Skin thickening: None. Axillary adenopathy: None. IMPRESSION: No mammographic evidence of malignancy. Annual screening is recommended unless otherwise clinically indicated. ASSESSMENT: BI-RADS Category 1: Negative.
== END 2024-11-19 23:59 | disposition home or self-care (01) ==
LOC: RAD 13:11
PROVIDERS: PCP Family Medicine; Visit Provider Family Medicine
DX: Z12.31 Encounter for screening mammogram for malignant neoplasm of breast (principal); R92.323 Mammographic fibroglandular density, bilateral breasts; Z13.820 Encounter for screening for osteoporosis; Z78.0 Asymptomatic menopausal state; Z96.643 Presence of artificial hip joint, bilateral
CPT/HCPCS: 77063; 77067; 77080

== ENCOUNTER 2024-11-20 08:06 | Day surgery (SDC) | payer BC, MEDICARE, SELFPAY ==
[2024-11-20 08:26] VITALS: BP 159/80; PULSE 73; RESP 18; O2SAT 99; BMI 43.4
[2024-11-20 08:40] VITALS: BP 139/100; PULSE 78; RESP 18; O2SAT 100
[2024-11-20] MEDS: DEXAMETHASONE 10MG/ML 1ML VIAL 10 MG (08:40)
[2024-11-20 08:41] VITALS: BP 139/100; PULSE 79; RESP 18; O2SAT 100
[2024-11-20 08:55] VITALS: BP 178/70; PULSE 69; RESP 18; O2SAT 98
--- NOTE | 2024-11-20 09:11 | P.PCN_ITS ---
Procedure Date: 11/20/24 Time: 08:45 Anesthesiologist:: Cabrera Trevino CRNA Complications:: None Pre-procedure Diagnosis:: Degenerative disc lumbar spine multilevels. Lumbar radiculopathy. Post-procedure Diagnosis:: Same. Indications for Procedure:: Patient is a very pleasant 74-year-old female who comes our clinic today for lumbar epidural steroid injection at L3-4 level. Patient describes low lumbar back pain as constant, dull, aching. She also reports bilateral hip and leg ra dicular symptoms at times. She rates her pain 6/10. Procedure Details:: Procedure: Lumbar epidural steroid injection under fluoroscopy Informed consent was obtained and the risks and benefits of the procedure were explained to the patient. The patient was taken to the procedure room and noninvasive monitors placed, including noninvasive blood pressure cuff and pulse oximeter. The back was viewed using C-arm Fluoroscopy and prepped using Chloraprep as a cleansing solution and the L3-4 interspace was palpated. Skin and subcutaneous tissues were anesthetized using lidocaine 1.5% and a 25-gauge needle. After this, an 18-gauge Touhy epidural needle was placed into the L3-4 interspace and advanced using fluoroscopic guidance and loss of resistance to air until the epidural space was encountered. After confirmation of needle placement in the epidural space, with dye, a solution containing normal saline, 3 mL and dexamethasone 10 mg were incrementally injected into the lumbar epidural space. The patient tolerated the procedure well with no complications. The patient was observed in the Pain Clinic and then discharged home neurologically intact. Plan and Disposition:: Patient was discharged without incident.
== END 2024-11-20 08:55 | disposition home or self-care (01) ==
LOC: SC.PAINP 08:08
PROVIDERS: PCP Family Medicine; Visit Provider Nurse Practitioner Family
DX: M51.16 Intervertebral disc disorders with radiculopathy, lumbar region (principal); Z91.030 Bee allergy status; G47.33 Obstructive sleep apnea (adult) (pediatric); Z99.89 Dependence on other enabling machines and devices
CPT/HCPCS: 62323; J1100